=== PATIENT | female | born 1940 | race Caucasian/White ===

== ENCOUNTER 2022-02-16 16:10 | Emergency (ER) | payer OTHER, MEDICAID ==
[~2022-02-16] VITALS: Ht 167.6 cm; Wt 81.0 kg
[~2022-02-16 16:10] MED LIST: ACTOS; ADVAIR; COZAAR; LASIX; LEVAQUIN; METFORMIN; METOPROLOL; PANTPAK; POTASSIUM; PREDPOW63; SPIRIVA; WARFARIN
[2022-02-16] MEDS ORDERED: PANTOPRAZOLE 40 MG/10 ML VIAL INJ IV ONE (16:45)
[2022-02-16 18:08] LABS: Basophils # (auto) 0.1 10 ^3/uL (0-0.2); Basophils % (auto) 1.3 % (0.0-2.0); Eosinophils # (auto) 0.1 10 ^3/uL (0-0.8); Eosinophils % (auto) 1.6 % (0.0-7.0); Hemoglobin 12.9 g/dL (12.2-16.2); Lymphocytes # (auto) 1.6 10 ^3/uL (0.4-5.4); Lymphocytes % (auto) 20.3 % (10.0-50.0); Mean Corpuscular Hemoglobin 28.7 pg (28.0-32.0); Mean Corpuscular Hgb Conc. 32.3 g/dL (32.0-36.0); Monocytes # (auto) 0.6 10 ^3/uL (0-1.3); Monocytes % (auto) 7.8 % (0.0-12.0); Neutrophils # (auto) 5.3 10 ^3/uL (1.6-8.6); Nucleated Red Blood Cells % 0.1 %; White Blood Cell 7.7 10^3/uL (4.4-10.8)
[2022-02-16 18:29] LABS: Potassium 3.3 mmol/L (3.5-5.1)
[2022-02-16 18:36] LABS: Albumin 3.1 g/dL (3.4-5.0); BUN/Creatinine Ratio 22.8; Bilirubin, Total 0.5 mg/dL (0.2-1.0); Calcium 8.7 mg/dL (8.5-10.1); Total Protein 6.5 g/dL (6.4-8.2)
[2022-02-16 18:38] LABS: INR 1.18 (0.9-1.15); Partial Thromboplastin Time 39.9 sec (24.6-33.4)
[2022-02-16 18:53] LABS: Urine Bacteria NONE SEEN /hpf (None Seen); Urine Blood 1+ /uL (Negative); Urine WBC 17 /hpf (0 - 5)
[2022-02-16 19:00] VITALS: BP 158/52
[2022-02-16] MEDS ORDERED: POTASSIUM EFFERVESENT TAB 25 MEQ PO ONE (20:00)
== END 2022-02-16 21:05 | disposition home or self-care (01) ==
LOC: EDBD 16:10 → ER 16:10
DX: R10.84 Generalized abdominal pain (principal); R11.2 Nausea with vomiting, unspecified; R19.7 Diarrhea, unspecified; R07.89 Other chest pain; I10 Essential (primary) hypertension; E11.9 Type 2 diabetes mellitus without complications; J44.9 Chronic obstructive pulmonary disease, unspecified; Z79.899 Other long term (current) drug therapy; Z79.01 Long term (current) use of anticoagulants
CPT/HCPCS: 36415; 71045; 74176; 80053; 81001; 83880; 84484; 85025; 85379; 85610; 85730; 96374; 99285; C9113

== ENCOUNTER 2023-10-08 14:31 | Emergency (ER) | payer OTHER, MEDICAID ==
[~2023-10-08] VITALS: Ht 170.2 cm; Wt 95.5 kg
[2023-10-08 14:47] VITALS: BP 176/82; PULSE 62; RESP 20; O2SAT 97
[2023-10-08 15:38] LABS: Urine Bacteria FEW /hpf (None Seen); Urine Blood TRACE /uL (Negative); Urine Clarity Clear (Clear); Urine Color Colorless (Yellow); Urine Protein, UAD Negative (Negative); Urine Specific Gravity 1.007 (1.001-1.035); Urine Urobilinogen Normal (Negative); Urine WBC 5 /hpf (0 - 5); Urine pH 7.5 (5.0-9.0)
== END 2023-10-08 17:52 | disposition left against medical advice (07) ==
LOC: EDBD 14:31 → ER 14:31
DX: M54.9 Dorsalgia, unspecified (principal); Z53.21 Procedure and treatment not carried out due to patient leaving prior to being seen by health care provider
CPT/HCPCS: 81001

== ENCOUNTER 2025-05-09 22:59 | Inpatient (IN) | payer OTHER, MEDICAID ==
[~2025-05-09] VITALS: Ht 170.2 cm; Wt 113.0 kg
[2025-05-10] VITALS (10 sets, daily range): BP systolic 106–132; BP diastolic 61–74; PULSE 58–88; RESP 14–19; TEMP 97.8–98.3; O2SAT 96–99
[2025-05-10 00:22] LABS: Hematocrit 35.4 % (36.0-46.0); Hemoglobin 11.6 g/dL (12.2-16.2); Mean Corpuscular Hemoglobin 27.5 pg (28.0-32.0); Mean Corpuscular Volume 83.9 fL (80.0-100.0); Nucleated Red Blood Cells % 0.1 %
--- NOTE | 2025-05-10 00:44 | DVH ---
Exam: CT CT AB PEL WO CON-NO ORAL OR IV History: epig pain n/v Comparison Study: None Technique: Multidetector spiral CT of the abdomen was performed from lung bases to pubic symphysis. Imaging was performed without IV contrast. Axial, coronal and sagittal multiplanar reformats were obtained from the axial data set by the technologist. Radiation Dose : 1. Abdomen/Pelvis: CTDIvol 24.93 mGy, DLP 1517.37 mGy*cm. Findings: Evaluation of solid organs is limited due to lack of intravenous contrast use. Lung Bases: No acute or significant lung base finding. Normal heart size. No pleural or pericardial effusion. Liver: The liver is normal in size. No focal lesions. Gallbladder and Biliary Tree: Unremarkable Spleen: Unremarkable Pancreas: Fatty replacement of the pancreatic parenchyma. Adrenal Glands: Bilateral hypodense adrenal nodules, likely adenomas. Kidneys: Kidneys are grossly normal without calculi or hydronephrosis. Bladder: Grossly unremarkable for degree of distention. Bowel: The stomach is grossly normal in appearance. Small bowel and colon are normal in caliber and distribution. Normal appendix is visualized in the right lower quadrant without findings of appendicitis. Moderate size hiatal hernia. Ascites: Absent Lymphadenopathy: No mesenteric, retroperitoneal or periportal lymphadenopathy. Abdominal Wall and Mesentery: Unremarkable. Vasculature: Infrarenal IVC filter. Pelvic Organs: Unremarkable Musculoskeletal: No aggressive focal bony lesions, acute fractures or dislocation. IMPRESSION: No acute abdominal or pelvic findings. Radiation optimization: All CT scans at this facility use at least one of these dose optimization techniques: automated exposure control mA and/or kV adjustment per patient size (includes targeted exams where dose is matched to clinical indication) or iterative reconstruction.
[2025-05-10 00:50] LABS: Alanine Aminotransferase 21 U/L (7-40); Anion Gap 10 (5-15); BUN/Creatinine Ratio 23.7 (10.0-20.0); Carbon Dioxide 25 mmol/L (20-31); Chloride 103 mmol/L (98-107); Lipase 16 U/L (12-53); Potassium 3.9 mmol/L (3.5-5.1); Sodium 138 mmol/L (136-145)
[2025-05-10 00:51] LABS: Bilirubin, Total 0.6 mg/dL (0.2-1.0)
--- NOTE | 2025-05-10 00:52 | ED.PDOC ---
GI ASSESSMENT HPI Comments HPI: 85-year-old female who came to ER via EMS for abdominal pain. Patient has been complaining of diffuse abdominal pain, associated nausea, vomiting and loss of appetite. Complaining also weakness and dizziness. Denies any acute chest pains Past Medical History: Hypertension, diabetes, GERD, congestive heart failure and on home oxygen Surgical History: Family History: Personal and Social History: [place]: abd pain , chf, o2, abd pain. HPI: Poor Historian. REVIEW OF SYSTEMS: CONSTITUTIONAL: Denies acute: fever, diaphoresis, chills, HEAD: Denies acute: headache, photophobia Eyes: Denies acute: Double vision, vision loss, eye pain, eye discharge. EARS: Denies acute: tinnitus, hearing loss, ear discharge, ear pain, THROAT: Denies acute: sore throat, swelling, difficulty swallowing , pain with swal lowing, change in voice. NECK: Denies acute: neck pain, neck swelling, stiff neck. HEART: Denies acute : chest pain, palpitations, LUNGS: Denies acute: , wheezing, cough, hemoptysis ABDOMEN: Denies acute: , diarrhea, melena , hematemesis, hematochezia SKIN: Denies acute: rash, redness, lesions, itchiness. EXTREMITIES: Denies acute: calf pain, numbness, tingling, weakness, denies pain in extremity. Denies acute: Low back pain. Neuro: Denies acute: focal neurological deficit, motor or sensory focal neurological deficit, tremors, seizure like activity, confusion, change in mental status, loss of bowel or bladder function, cauda equina like symptoms. : Denies acute: dysuria, hematuria, flank pain, increase in urinary frequency. PSYCH: Denies acute: hallucination, suicidal ideation, homicidal ideation. FEMALE: Denies acute: abnormal vaginal bleeding, foul odor, unusual discharge. PHYSICAL EXAM: General: ----moderate----acute distress, awake and alert. Head: normocephalic, atraumatic. No raccoon's eyes, no monson sign. Neck: supple, trachea is midline, no swelling. Throat: Normal phonation. Eyes:, no erythema, no purulent discharge, no proptosis, no icterus. Heart: regular rate, regular rhythm, no significant murmur appreciated. Lungs: Mild respiratory distress, Able to speak in full sentences. No wheezing, no rhonchi, no crackles. No stridors Abdomen: Generalized nonspecific tender to palpation, non distended, soft, no guarding, no rebound, + bowel sounds. Morbidly obese Neuro: Awake, Alert, oriented to name, self, situation, follows commands GCS=15. Speech is normal. Skin: no petechia, no purpura, no cyanosis, non-pale, not jaundice. Lower extremities: --2/4 b/l - Pitting edema no deformity, no focal swelling, no calf TTP. Makes eye contact. moves all four extremities. Face: no apparent facial droop. ED COURSE: DISCLAIMER: This medical document was created using an electronic medical record system with voice recognition software and computerized dictation system. Although this document has been carefully reviewed, there might still be some phonetic and typographical errors. Occasional wrong-word or "sound-alike" substitutions may have occurred due to the inherent limitations of voice recognition software. These areas are purely typographical due to imperfections of the software programs and do not reflect any compromise in the patient's medical care. Please read the chart carefully and recognize, using context, where these substitutions have occurred. Chief Complaint: Abdominal Pain Time Seen by MD: 00:35 Reviewed Notes: Allergies Allergies: Coded Allergies: NO KNOWN ALLERGIES (Unverified , 07/13/11) Home Meds Active Scripts Aspirin (Aspirin EC Adult Low Dose) 81 Mg Tab, 81 MG PO DAILY, #30 TAB Prov:SALLIE GRIFFIN MD 05/15/25 Cefdinir (Cefdinir) 300 Mg Cap, 1 CAP PO BID, #6 CAP Prov:SALLIE GRIFFIN MD 05/15/25 Reported Medications [Spiriva] No Conflict Check 07/13/11 Prednisone (Prednisone) Pow 07/13/11 [Potassium] No Conflict Check 07/13/11 [Warfarin] No Conflict Check 07/13/11 Pantoprazole Sodium (Protonix) William 07/13/11 [Levaquin] No Conflict Check 07/13/11 [Metoprolol] No Conflict Check 07/13/11 [Cozaar] No Conflict Check 07/13/11 [Actos] No Conflict Check 07/13/11 [Metformin] No Conflict Check 07/13/11 [Lasix] No Conflict Check 07/13/11 [Advair] No Conflict Check 07/13/11 Information Source: Patient Mode of Arrival: EMS EKG EKG : Pulse Rate (adult): 62 Cardiac Rhythm: NSR Block: RBBB Comments Twave inversion at L1, L2 and AvF Was a procedure done? Was a procedure done?: No GI differential Dx Differential Diagnosis: Other (DDX include Diverticulitis, colitis, gastroenteritis, acute abdomen, SBO, enteritis, constipation, volvulus, append icitis, Gallbladder disease, choledocolithiasis, ascending cholangitis, pancreatitis, intraAbdominal mass/neoplasm, hepatitis, UTI, pylonephritis, kidney stone, aneurysm, dissection, Inflammatory bowel disease, gastroparesis, ischemic bowel,,,,,,Food poisoning, bacterial/parasitic/viral etiology, trauma, diabetes DKA,ovarian torsion, ovarian cyst/mass, tubo-ovarian abscess, ) X-Ray, Labs, Meds, VS Vital Signs Date Time Temp Pulse Resp B/P (MAP) Pulse Ox O2 Delivery O2 Flow Rate FiO2 05/10/25 04:00 60 14 112/47 (68) 99 05/10/25 03:40 60 Nasal Cannula* 3 32 05/10/25 03:00 61 14 109/49 (69) 98 05/10/25 02:33 60 22 105/43 (63) 97 05/10/25 02:00 60 22 101/42 (61) 97 05/10/25 01:14 62 05/10/25 01:08 62 05/10/25 01:00 98.2 62 17 98/36 (56) 97 98.2 05/10/25 01:00 Nasal Cannula* 3 32 05/09/25 23:31 99.4 72 26 108/63 92 99.4 Lab Test 05/10/25 02:42 05/10/25 01:58 05/10/25 00:52 05/10/25 00:06 Range/Units Lactic Acid Level 1.8 2.4 *H 0.4-2.0 mmol/L Troponin I High Sensitivity 733 *H 738 *H 791 *H </=34 ng/L Urine Color Yellow Yellow Urine Clarity Turbid H Clear Urine pH 6.0 5.0-9.0 Urine Specific Soper 1.020 1.001-1.035 Urine Protein 1+ H Negative Urine Ketones Negative Negative Urine Blood 2+ H Negative /uL Urine Nitrite Negative Negative Urine Bilirubin Negative Negative Urine Urobilinogen 2 H Negative mg/dL Urine Leukocyte Esterase 3+ Negative /uL Urine RBC 4 0 - 4 /hpf Urine Microscopic WBC 123 H 0-5 /HPF Urine Squamous Epithelial Cells Few <5 /hpf Urine Renal Epithelial Cells Few None Seen /hpf Urine Bacteria Many H None Seen /hpf Urine Mucus Few None Seen Urine Glucose Normal Normal mg/dL White Blood Count 13.3 H 4.4-10.8 10^3/uL Red Blood Count 4.22 4.0-5.20 10^6/uL Hemoglobin 11.6 L 12.2-16.2 g/dL Hematocrit 35.4 L 36.0-46.0 % Mean Corpuscular Volume 83.9 80.0-100.0 fL Mean Corpuscular Hemoglobin 27.5 L 28.0-32.0 pg Mean Corpuscular Hemoglobin Concent 32.8 32.0-36.0 g/dL Red Cell Distribution Width 17.0 H 11.8-14.3 % Platelet Count 191 140-450 10^3/uL Mean Platelet Volume 9.2 6.9-10.8 fL Neutrophils (%) (Auto) 90.5 H 37.0-80.0 % Lymphocytes (%) (Auto) 1.4 L 10.0-50.0 % Monocytes (%) (Auto) 7.2 0.0-12.0 % Eosinophils (%) (Auto) 0.5 0.0-7.0 % Basophils (%) (Auto) 0.4 0.0-2.0 % Neutrophils # (Auto) 12.1 H 1.6-8.6 10 ^3/uL Lymphocytes # (Auto) 0.2 L 0.4-5.4 10 ^3/uL Monocytes # (Auto) 1.0 0-1.3 10 ^3/uL Eosinophils # (Auto) 0.1 0-0.8 10 ^3/uL Basophils # (Auto) 0.1 0-0.2 10 ^3/uL Nucleated Red Blood Cells 0.1 % Sodium Level 138 136-145 mmol/L Potassium Level 3.9 3.5-5.1 mmol/L Chloride Level 103 98-107 mmol/L Carbon Dioxide Level 25 20-31 mmol/L Anion Gap 10 5-15 Blood Urea Nitrogen 33 H 9-23 mg/dL Creatinine 1.39 H 0.550-1.02 mg/dL Glomerular Filtration Rate Calc 37 >90 mL/min BUN/Creatinine Ratio 23.7 H 10.0-20.0 Serum Glucose 160 H 74-106 mg/dL Calcium Level 8.3 L 8.7-10.4 mg/dL Magnesium Level 2.0 1.6-2.6 mg/dL Total Bilirubin 0.6 0.2-1.0 mg/dL Aspartate Amino Transferase (AST) 40 13-40 U/L Alanine Aminotransferase (ALT) 21 7-40 U/L Alkaline Phosphatase 178 H 46-116 U/L B-Type Natriuretic Peptide 743.70 0-100 pg/mL Total Protein 5.6 L 5.7-8.2 g/dL Albumin 3.1 L 3.2-4.8 g/dL Lipase 16 12-53 U/L Thyroid Stimulating Hormone (TSH) 1.46 0.55-4.78 uIU/mL Microbiology Date/Time Source Procedure Growth Status 05/10/25 00:55 Blood Blood Culture - Final NO GROWTH AFTER 5 DAYS OF INCUBATION. Complete 05/10/25 00:52 Blood Blood Culture - Final NO GROWTH AFTER 5 DAYS OF INCUBATION. Complete 05/09/25 01:58 Urine - Midstream Clean Catch Urine Culture - Final Enterobacter aerogenes Escherichia coli Complete [place] [id number] Ph: [phone] DIAGNOSTIC IMAGING Diagnostic Imaging Report : [id number] Signed PATIENT: SALENA CHINO ACCT: [id number] UNIT: [id number] : 1940 LOC: ER ROOM / BED: / AGE / SEX: 85 / F ADM STATUS: REG ER SERVICE [id number] ORDERING PHYSICIAN: TAYLOR ELLISON DO PROCEDURE(s): ABPL - CT AB PEL WO CON-NO ORAL OR IV REASON: epig pain n/v ORDER NUMBER(s): [id number], ACCESSION NUMBER(s): [id number] Exam: CT CT AB PEL WO CON-NO ORAL OR IV History: epig pain n/v Comparison Study: None Technique: Multidetector spiral CT of the abdomen was performed from lung bases to pubic symphysis. Imaging was performed without IV contrast. Axial, coronal and sagittal multiplanar reformats were obtained from the axial data set by the technologist. Radiation Dose : 1. Abdomen/Pelvis: CTDIvol 24.93 mGy, DLP 1517.37 mGy*cm. Findings: Evaluation of solid organs is limited due to lack of intravenous contrast use. Lung Bases: No acute or significant lung base finding. Normal heart size. No pleural or pericardial effusion. Liver: The liver is normal in size. No focal lesions. Gallbladder and Biliary Tree: Unremarkable Spleen: Unremarkable Pancreas: Fatty replacement of the pancreatic parenchyma. Adrenal Glands: Bilateral hypodense adrenal nodules, likely adenomas. Kidneys: Kidneys are grossly normal without calculi or hydronephrosis. Bladder: Grossly unremarkable for degree of distention. Bowel: The stomach is grossly normal in appearance. Small bowel and colon are normal in caliber and distribution. Normal appendix is visualized in the right lower quadrant without findings of appendicitis. Moderate size hiatal hernia. Ascites: Absent Lymphadenopathy: No mesenteric, retroperitoneal or periportal lymphadenopathy. Abdominal Wall and Mesentery: Unremarkable. Vasculature: Infrarenal IVC filter. Pelvic Organs: Unremarkable Musculoskeletal: No aggressive focal bony lesions, acute fractures or dislocation. IMPRESSION: No acute abdominal or pelvic findings. Radiation optimization: All CT scans at this facility use at least one of these dose optimization techniques: automated exposure control mA and/or kV adjustment per patient size (includes targeted exams where dose is matched to clinical indication) or iterative reconstruction. ATED BY: DAR ZABALA MD DICTATED DATE/TIME: 05/10/2541 SIGNED BY: DAR ZABALA MD SIGNED DATE/TIME: 05/10/2541 CC: [place] [id number] Ph: [phone] DIAGNOSTIC IMAGING Diagnostic Imaging Report : [id number] Signed PATIENT: SALENA CHINO ACCT: [id number] UNIT: [id number] : 1940 LOC: ER ROOM / BED: / AGE / SEX: 85 / F ADM STATUS: REG ER SERVICE [id number] ORDERING PHYSICIAN: TAYLOR ELLISON DO PROCEDURE(s): CXRP - CHEST PORTABLE REASON: sob ORDER NUMBER(s): [id number], ACCESSION NUMBER(s): [id number] CHEST RADIOGRAPH Indication: sob Technique: Single frontal view of the chest was obtained COMPARISON: None FINDINGS: Single lead left chest wall pacing device with lead tip superimposed over the right ventricle. Cardiac silhouette is enlarged. Slight prominence of the pulmonary vasculature. Small left-sided pleural effusion with mild left basilar atelectasis / consolidation. Bones and soft tissues demonstrate no significant abnormality. IMPRESSION: Cardiomegaly with mild pulmonary vascular congestion. Small left-sided pleural effusion with mild left basilar atelectasis / consolidation. ATED BY: DAR ZABALA MD DICTATED DATE/TIME: 05/10/25118 SIGNED BY: DAR ZABALA MD SIGNED DATE/TIME: 05/10/25118 CC: Time of 1ST Reevaluation: 00:53 Reevaluation 1ST: Unchanged Patient Education/Counseling: Diagnosis, Treatment Family Education/Counseling: No Family Present Comments MDM: patient presented with the above HPI.--abdominal pain----workup was initiated. patient was found with the above mentioned diagnosis. the following medications were ordered: please refer to order lists of meds and tests obtained by myself Dr. Ellison. Patient ED course and VS have been stabilized. Patient has been reassessed in the ED and remained in a stable condition. Pertinent incidental findings were discussed with the patient and/or family. Patient/family voices understanding and is agreeable with plan. Patient has been observed in the ED adequate length of time to insure improvement/stability. Escalation of care considered: Consideration of escalation to observation or admission CT scan of the abdomen and pelvis was obtained. Patient was found that low albumin. Albumin was ordered. Patient was found with elevated troponin. Cardiology was consulted. Patient was found with elevated BNP. Patient was given Lasix. Patient was found with mild leukocytosis elevated lactic acid and UTI and lung consolidation, antibiotics initiated Sepsis workup was initiated with a fluid resuscitation restriction because of ongoing CHF exacerbation and volume overload Patient was ADMITTED to the medicine team for further evaluation and treatment of their presentation. All the reports of any imaging studies that were ordered by myself were reviewed by myself. SEPSIS Sepsis Screen Date sepsis recognized/suspect: May 09, 2025 Time Sepsis recognized/suspect: 2333 Recent Procedure: No On Antibiotic Therapy: No Respiratory Rate >20: Yes Heart Rate >90: No Temp<36 C (96.8 F) or >38.3 C: No SBP <90 or MAP <65 mmHG: No New Acute Mental Status Change: No Is the patient on CPAP, BIPAP,: No Physician Orders Ct Ab Pel Wo Con-No Oral Or Iv (05/09/25 23:54) Fish Technologist (05/09/25 ) Electrocardigram (05/09/25 23:54) Chest Portable (05/10/25 00:51) * Cardiology Consult (05/10/25 04:18) Vital Signs Date Time Temp Pulse Resp B/P (MAP) Pulse Ox O2 Delivery O2 Flow Rate FiO2 05/10/25 04:00 60 14 112/47 (68) 99 05/10/25 03:40 60 Nasal Cannula* 3 32 05/10/25 03:00 61 14 109/49 (69) 98 05/10/25 02:33 60 22 105/43 (63) 97 05/10/25 02:00 60 22 101/42 (61) 97 05/10/25 01:14 62 05/10/25 01:08 62 05/10/25 01:00 98.2 62 17 98/36 (56) 97 98.2 05/10/25 01:00 Nasal Cannula* 3 32 05/09/25 23:31 99.4 72 26 108/63 92 99.4 Laboratory Tests Test 05/10/25 00:06 05/10/25 02:42 Lactic Acid Level 2.4 mmol/L (0.4-2.0) *H 1.8 mmol/L (0.4-2.0) White Blood Count 13.3 10^3/uL (4.4-10.8) H Departure 1 Departure Time of Disposition: 00:55 Impression: Primary Impression: CHF exacerbation Additional Impressions: Elevated troponin Abdominal pain Urinary tract infection Elevated lactic acid level Sepsis Disposition: 09 ADMITTED INPATIENT Admit to: Tele Condition: Guarded e-Prescriptions Aspirin (Aspirin EC Adult Low Dose) 81 Mg Tab 81 MG PO DAILY, #30 TAB Prov: SALLIE GRIFFIN MD 05/15/25 Cefdinir (Cefdinir) 300 Mg Cap 1 CAP PO BID, #6 CAP Prov: SALLIE GRIFFIN MD 05/15/25 Discharged With: Self Critical Care Note Critical Care Time?: Yes (1 hr-critical care time only) Stability Stability form required: No Heart Score Heart Score: Heart Score Response (Comments) Value History Slightly Suspicious 0 EKG Normal 0 Age >65 2 Risk Factors >3 or Hx ASHD 2 Troponin >3 x's Normal limit 2 Total 6 I personally scribed for TAYLOR ELLISON DO ([email or web address]) on 05/10/25 at 00:52. El ectronically submitted by Bharath Zacarias ([facility]). I personally scribed for TAYLOR ELLISON DO ([email or web address]) on 05/10/25 at 00:55. Electronically submitted by [facility]acarias ([facility] I personally scribed for TAYLOR ELLISON DO ([email or web address]) on 05/10/25 at 01:14. Electronically submitted by Bharath Zacarias ([facility]). I personally scribed for TAYLOR ELLISON DO ([email or web address]) on 05/10/25 at 01:29. Electronically submitted by Bharath Zacarias ([facility]). I personally scribed for TAYLOR ELLISON DO ([email or web address]) on 05/10/25 at 03:45. Electronically submitted by Bharath Zacarias ([facility] TAYLOR ELLISON DO May 10, 2025 00:52
[2025-05-10 00:54] LABS: Albumin 3.1 g/dL (3.2-4.8); Alkaline Phosphatase 178 U/L (46-116); Blood Urea Nitrogen 33 mg/dL (9-23); Calcium 8.3 mg/dL (8.7-10.4); Glucose 160 mg/dL (74-106); Total Protein 5.6 g/dL (5.7-8.2)
[2025-05-10 00:59] LABS: Lactic Acid w/Reflex 2.4 mmol/L (0.4-2.0)
--- NOTE | 2025-05-10 01:22 | DVH ---
CHEST RADIOGRAPH Indication: sob Technique: Single frontal view of the chest was obtained COMPARISON: None FINDINGS: Single lead left chest wall pacing device with lead tip superimposed over the right ventricle. Cardiac silhouette is enlarged. Slight prominence of the pulmonary vasculature. Small left-sided pleural effusion with mild left basilar atelectasis / consolidation. Bones and soft tissues demonstrate no significant abnormality. IMPRESSION: Cardiomegaly with mild pulmonary vascular congestion. Small left-sided pleural effusion with mild left basilar atelectasis / consolidation.
[2025-05-10] MEDS: ALBUMIN 25% 100 ML IV ONE (01:34)
[2025-05-10 02:50] LABS: Urine Protein, UAD 1+ (Negative)
[2025-05-10] MEDS: SODIUM CHLORIDE 0.9% 500 ML IV ONE (03:09)
[2025-05-10] MEDS: PIPERACILLIN-TAZOB 3.375GM 100 ML IV ONE (03:09)
[2025-05-10] MEDS: FUROSEMIDE 40 MG/4 ML VIAL IV ONE (03:18)
[2025-05-10] MEDS ORDERED: VANCOMYCIN PER PHARMACY 0 MG IV SCH (04:30)
[2025-05-10] MEDS ORDERED: DOCUSATE SOD 100 MG CAP PO PRN (04:30)
[2025-05-10] MEDS ORDERED: MORPHINE SULFATE INJ 2 MG/ml SYRG IV PRN (04:30)
[2025-05-10] MEDS ORDERED: DEXTROSE (50%) 50ML SYRG IV PRN ×2 (04:30→09:45)
[2025-05-10] MEDS ORDERED: HYDROcodone-ACET 5/325MG TAB PO PRN (04:30)
[2025-05-10] MEDS ORDERED: ACETAMINOPHEN 325 MG TAB PO PRN (04:30)
[2025-05-10] MEDS ORDERED: NITROGLYCERIN 0.4 MG SL TAB SL PRN (04:30)
--- NOTE | 2025-05-10 04:58 | DVHHPRES ---
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 Per daughter, the patient was sweaty, clammy, unable to ambulate, and complained of burning dysuria with foul-smelling urine. She has chronic cough with sputum and dyspnea at baseline on 3 L O?. No fever, chest pain, melena, or hematemesis. She fell on 04/25/25, had a negative head CT/MRI at [facility]. ER Course & Findings * BP: 98/36 -110/51 mmHg after fluids (MAP - 70) * Pulse: 62 bpm (paced) * RR: 17/min | SpO? 97 % on 3 L NC * WBC 13.3 ?, Lactate 2.4 - 1.8 (after resuscitation), Cr 1.39 (BUN 33), Alb 3.1 , BNP 743 , Troponin-HS 791 - 738 - 733 , UA: WBC 123/hpf, LE 3+, bacteria many, nitrite +, protein +, turbid urine. * CXR: Cardiomegaly with pulmonary vascular congestion, small left pleural effusion, mild basilar atelectasis/consolidation. * CT A/P (no contrast): No acute intra-abdominal pathology; fatty pancreas, bilateral adrenal adenomas, infrarenal IVC filter. ED Management * IV NS 500 mL/hr 1 h, * Albumin 25 mL IV 1, * Zosyn 4.5 g IV 1, * Lasix 40 mg IV 1 for mild congestion.?BP improved, lactate normalized, patient clinically more alert. Findings consistent with urosepsis (severe sepsis with hypotension and URSULA), possible Type 2 NSTEMI (demand ischemia), and [id number] CHF. Plan for inpatient admission to telemetry for continued IV antibiotics, cautious fluids, culture monitoring, and multidisciplinary management Past Medical History * Congestive heart failure (HFpEF) * Atrial fibrillation s/p ablation and pacemaker * COPD on 3 L home oxygen (10 yrs) * Type 2 diabetes mellitus (IDDM) * Hypertension * GERD * History of DVT s/p IVC filter * Chronic venous stasis / phlebitis *CKD stage 3 (GFR 37 mL/min) * Recent Falls Past Surgical History * Hysterectomy (age 28) * Cholecystectomy * Cardiac ablation & pacemaker placement * IVC filter insertion Family History Non-contributory; no premature cardiac deaths. Past Social History * Former smoker > 50 yrs ago; occupational dust exposure (COPD risk) * Denies alcohol/drug use *; independent baseline ADLs Review of Systems Review of Systems General Fatigue, weakness, chills, poor appetite, No fever HEENT Dry mouth, No sore throat Neuro Confusion, dizziness, No focal deficit Cardiac Palpitations (AF history), No chest pain Respiratory Chronic cough, sputum, dyspnea , No hemoptysis GI Diffuse abdominal pain, nausea, vomiting, No hematemesis/melena Dysuria, foul urine, low output, No hematuria Musculoskeletal No acute trauma Skin Clammy,No rash Endocrine No heat/cold intolerance Allergies: Coded Allergies: NO KNOWN ALLERGIES (Unverified , 07/13/11) Exam Vital Signs Vital Signs Date Time Temp Pulse Resp B/P (MAP) Pulse Ox O2 Delivery O2 Flow Rate FiO2 05/10/25 01:14 62 05/10/25 01:00 98.2 17 98/36 (56) 97 98.2 05/10/25 01:00 Nasal Cannula* 3 32 Exam General: Elderly female, ill-appearing, arousable, mildly confused Vitals: BP 110/51 (MAP 70), HR 60 (paced), RR 17, T 98.2 F, SpO? 97 % on 3 L NC HEENT: Dry mucosa, no icterus or cyanosis Neck: No JVD, no bruit Cardiac: Paced rhythm, S +, no murmur Lungs: Bibasilar crackles, no wheezing Abdomen: Soft, mild suprapubic tenderness, +BS, non-guarding Extremities: Chronic venous changes, no acute edema Neuro: Oriented 2, no focal deficit Skin: Warm, clammy Psych: Cooperative, fatigued Labs/Xrays Labs Test 05/10/25 02:42 05/10/25 01:58 05/10/25 00:06 Range/Units Lactic Acid Level 1.8 0.4-2.0 mmol/L Troponin I High Sensitivity 733 *H </=34 ng/L Urine Color Yellow Yellow Urine Clarity Turbid H Clear Urine pH 6.0 5.0-9.0 Urine Specific Simms 1.020 1.001-1.035 Urine Protein 1+ H Negative Urine Ketones Negative Negative Urine Blood 2+ H Negative /uL Urine Nitrite Negative Negative Urine Bilirubin Negative Negative Urine Urobilinogen 2 H Negative mg/dL Urine Leukocyte Esterase 3+ Negative /uL Urine RBC 4 0 - 4 /hpf Urine Microscopic WBC 123 H 0-5 /HPF Urine Squamous Epithelial Cells Few <5 /hpf Urine Renal Epithelial Cells Few None Seen /hpf Urine Bacteria Many H None Seen /hpf Urine Mucus Few None Seen Urine Glucose Normal Normal mg/dL White Blood Count 13.3 H 4.4-10.8 10^3/uL Red Blood Count 4.22 4.0-5.20 10^6/uL Hemoglobin 11.6 L 12.2-16.2 g/dL Hematocrit 35.4 L 36.0-46.0 % Mean Corpuscular Volume 83.9 80.0-100.0 fL Mean Corpuscular Hemoglobin 27.5 L 28.0-32.0 pg Mean Corpuscular Hemoglobin Concent 32.8 32.0-36.0 g/dL Red Cell Distribution Width 17.0 H 11.8-14.3 % Platelet Count 191 140-450 10^3/uL Mean Platelet Volume 9.2 6.9-10.8 fL Neutrophils (%) (Auto) 90.5 H 37.0-80.0 % Lymphocytes (%) (Auto) 1.4 L 10.0-50.0 % Monocytes (%) (Auto) 7.2 0.0-12.0 % Eosinophils (%) (Auto) 0.5 0.0-7.0 % Basophils (%) (Auto) 0.4 0.0-2.0 % Neutrophils # (Auto) 12.1 H 1.6-8.6 10 ^3/uL Lymphocytes # (Auto) 0.2 L 0.4-5.4 10 ^3/uL Monocytes # (Auto) 1.0 0-1.3 10 ^3/uL Eosinophils # (Auto) 0.1 0-0.8 10 ^3/uL Basophils # (Auto) 0.1 0-0.2 10 ^3/uL Nucleated Red Blood Cells 0.1 % Sodium Level 138 136-145 mmol/L Potassium Level 3.9 3.5-5.1 mmol/L Chloride Level 103 98-107 mmol/L Carbon Dioxide Level 25 20-31 mmol/L Anion Gap 10 5-15 Blood Urea Nitrogen 33 H 9-23 mg/dL Creatinine 1.39 H 0.550-1.02 mg/dL Glomerular Filtration Rate Calc 37 >90 mL/min BUN/Creatinine Ratio 23.7 H 10.0-20.0 Serum Glucose 160 H 74-106 mg/dL Calcium Level 8.3 L 8.7-10.4 mg/dL Total Bilirubin 0.6 0.2-1.0 mg/dL Aspartate Amino Transferase (AST) 40 13-40 U/L Alanine Aminotransferase (ALT) 21 7-40 U/L Alkaline Phosphatase 178 H 46-116 U/L B-Type Natriuretic Peptide 743.70 0-100 pg/mL Total Protein 5.6 L 5.7-8.2 g/dL Albumin 3.1 L 3.2-4.8 g/dL Lipase 16 12-53 U/L SEPSIS Sepsis Screen Date sepsis recognized/suspect: May 10, 2025 Time Sepsis recognized/suspect: 339 Recent Procedure: No On Antibiotic Therapy: Yes Respiratory Rate >20: Yes Heart Rate >90: No Temp<36 C (96.8 F) or >38.3 C: No SBP <90 or MAP <65 mmHG: No New Acute Mental Status Change: No Is the patient on CPAP, BIPAP,: No Physician Orders Ct Ab Pel Wo Con-No Oral Or Iv (05/09/25 23:54) Gre Instructor (05/09/25 ) Electrocardigram (05/09/25 23:54) Chest Portable (05/10/25 00:51) Insert King Catheter QSHIFT (05/10/25 02:04) * Cardiology Consult (05/10/25 04:18) Admit (05/10/25 04:24) Code Status (05/10/25 04:24) 2 Gm Sodium Diet (05/10/25 Breakfast) Renal Standard(2gna,3gk,Lopho) (05/10/25 Breakfast) Oxygen Per Hour (05/10/25 04:24) Hydrocodone-Acet 5/325mg Tab ([place] 5/32 (05/10/25 04:30) Docusate Sodium Capsule (Colace Capsule) (05/10/25 04:30) Enoxaparin Sodium (Lovenox) (05/10/25 10:00) Fall Risk Precautions In Place QSHIFT (05/10/25 04:24) Complete Blood Count (05/11/25 04:00) Comprehensive Metabolic Panel (05/11/25 04:00) Cardiac Diet-2gna,Lofat,Lochol (05/10/25 Breakfast) Echo 2d Mode Cardiac Dop (05/10/25 04:24) Condition: Unstable (05/10/25 04:24) Acetaminophen Tablet (Tylenol Tablet) (05/10/25 04:30) Sequential Compression Device (05/10/25 ) Nitroglycerin Sublingual (Ntrostat Subli (05/10/25 04:30) Morphine Sulfate Injection (05/10/25 04:30) Oxygen By Nasal Cannula (05/10/25 04:24) Stat Ekg For Chest Pain (05/10/25 04:24) Notify Md Of Changes From Base (05/10/25 04:24) Police Specialist For 24 Hours (05/10/25 04:24) Emergency Dysrhythmia Protocol (05/10/25 04:24) Rhythm Strips Once Every Shift (05/10/25 04:24) Electrocardigram (05/10/25 04:24) Electrocardigram (05/10/25 05:24) Electrocardigram (05/10/25 07:24) Troponin-I Hs (05/10/25 04:24) Troponin-I Hs (05/10/25 05:24) Troponin-I Hs (05/10/25 07:24) Piperacillin-Tazob 3.375gm (Zosyn 3.375g (05/10/25 06:00) Vancomycin Per Pharmacy Protoc (05/10/25 04:24) Vancomycin Per Pharmacy (05/10/25 04:30) Blood Culture (05/10/25 04:24) Urine Bacterial Culture (05/10/25 04:24) Respiratory Culture W/ Gs (05/10/25 04:24) Covid19 Antigen Smitha (05/10/25 ) Lactic Acid W/ Reflex Order (05/10/25 08:00) Oxygen By Nasal Cannula (05/10/25 04:24) Magnesium (05/10/25 04:24) B-Type Natriuretic Peptide (05/10/25 04:24) Daily Weight (05/10/25 04:24) Strict I&O (05/10/25 ) Ipratropium Medneb (Atrovent Medneb) (05/10/25 04:30) Albuterol Medneb (Ventolin Medneb) (05/10/25 04:30) Budesonide (Inhalation) (Pulmicort) (05/10/25 10:00) Med Neb Initial Treatment (05/10/25 04:24) Cont Med Neb Intial Tx (05/10/25 04:24) Glucose Blood (Accu-Chek Comfort Curve T (05/10/25 08:00) Insulin R (Human) (Insulin R) (05/10/25 08:00) Dextrose 50% Syringe (05/10/25 04:30) Fall Risk Precautions In Place QSHIFT (05/10/25 04:24) Pantoprazole (Protonix) (05/10/25 10:00) Thyroid Stimulating Hormone (05/10/25 04:54) Stool Occult Blood (05/10/25 04:54) Vital Signs Date Time Temp Pulse Resp B/P (MAP) Pulse Ox O2 Delivery O2 Flow Rate FiO2 05/10/25 01:14 62 05/10/25 01:08 62 05/10/25 01:00 98.2 62 17 98/36 (56) 97 98.2 05/10/25 01:00 Nasal Cannula* 3 32 05/09/25 23:31 99.4 72 26 108/63 92 99.4 Laboratory Tests Test 05/10/25 00:06 05/10/25 02:42 Lactic Acid Level 2.4 mmol/L (0.4-2.0) *H 1.8 mmol/L (0.4-2.0) White Blood Count 13.3 10^3/uL (4.4-10.8) H Medications Medications Dose Ordered Sig/Varghese Route Start Time Stop Time Status Last Admin Dose Admin Albumin Human 100 ml @ 100 mls/hr ONCE ONCE IV 05/10/25 01:30 05/10/25 02:29 DC 05/10/25 01:34 100 MLS/HR Piperacillin Sod/ Tazobactam Sod 100 ml @ 100 mls/hr ONCE ONCE IV 05/10/25 01:45 05/10/25 02:44 DC 05/10/25 03:09 100 MLS/HR Sodium Chloride 500 ml @ 500 mls/hr Q1H ONCE IV 05/10/25 01:45 05/10/25 02:44 DC 05/10/25 03:09 500 MLS/HR Assessment/Plan Assessment/Plan Assessment Severe Sepsis secondary to Urinary Tract Infection (urosepsis) WBC elevated, lactate elevated, hypotension, UA +, improved post-fluids CKD With superimposed URSULA (pre-renal vasomotor type) BUN/Cr 33/1.39, BCR 23.7, GFR 37 Type 2 NSTEMI (demand ischemia) due to sepsis Troponin [id number], no ST-elevation Acute on Chronic CHF unspecified type/ Echo still pending BNP 743, CXR congestion, Chronic COPD on home O2 3 L chronic cough, baseline dyspnea Type 2 Diabetes Mellitus with hyperglycemia Hypertension (currently labile) Hyponutrition / Hypoalbuminemia Albumin 3.1 , poor intake History of DVT / IVC filter Chronic risk Recent Fall (04/25/25) with negative head CT/MRI No acute injury noted Normocytic Normochromic Anemia, multifactorial (likely anemia of chronic disease and sepsis-related) Hgb 11.6 g/dL , Hct 35.4 %, MCH 27.5 , RDW 17 , chronic CHF/COPD/CKD, hypoal buminemia, infection-related marrow suppression chronic + acute component (AOCD vs dilutional vs inflammatory) Plan Severe Sepsis / Urosepsis * Continue Zosyn 4.5 g IV q8 h, adjust per culture. * Blood & urine cultures 2 prior to next dose. * Fluids: NS 250 mL bolus PRN MAP < 65, monitor I&O (avoid overload in CHF). * Repeat lactate q6 h until < 2.0. * Monitor MAP ? 65; vasopressors (norepinephrine) if persistent hypotension. CKD with superimposed URSULA (pre-renal vasomotor) * Hold losartan, NSAIDs, nephrotoxins. * Monitor UO > 0.5 mL/kg/hr, daily BUN/Cr. * Avoid IV contrast. * Nephrology consult if Cr ? > 1.5 baseline. Type 2 NSTEMI (demand) due to sepsis * Trend troponins q6 h 2, EKG q6 h 3. * Continue ASA 81 mg PO daily, clopidogrel 75 mg PO daily. * Telemetry monitoring. * Cardiology consult for echo & optimization. Acute on Chronic CHF /Unspecified type * Hold Lasix until hemodynamically stable; resume 40 mg IV q12 h if volume overload. * Daily weights, I&O, BMP, BNP trend. * Low Na cardiac diet. Ordered Echo COPD on Home O? * Maintain SpO? 8892 % on 3 L NC. * Continue Spiriva qd + Breztri per home regimen. * PRN DuoNeb q46 h. * Respiratory therapy eval. Type 2 DM with Hyperglycemia * POC glucose AC & HS. * Continue Lantus 20 U SC qHS + SSI Lispro per protocol. * Hold oral agents. Nutrition / Hypoalbuminemia * Cardiac ADA diet as tolerated. * Nutrition consult for protein supplementation. * Multivitamin, Vit D. Hypertension / AFib / Pacemaker * Hold diltiazem until SBP > 100. * Monitor tele for rate control. * Check pacemaker function if dominique episodes. Normocytic Normochromic Anemia, multifactorial (likely anemia of chronic disease and sepsis-related) * Iron studies: serum iron, ferritin, TIBC, transferrin saturation * Reticulocyte count * Vitamin B12, folate levels * Occult blood stool test 3 to rule out GI loss * Review peripheral smear if H/H drops or indices worsen Therapeutic Plan * Continue Iron 65 mg PO daily (per home regimen) * Maintain Hgb above 8 g/dL (given cardiac comorbidities) * Transfuse PRBCs if Hgb < 7 g/dL or symptomatic (dyspnea, angina, dizziness) * Avoid fluid overload during transfusion (use diuretic between units if CHF risk) Recent Fall / Delirium Prevention * Fall risk bundle (assist 2, bed alarm). * Neuro checks q4 h 24 h. Prophylaxis Type Intervention DVT ENOXAPARIN + SCDs GI (Stress) Pantoprazole 40 mg IV q24 h Pressure Ulcer Turn q2 h, air mattress Aspiration HOB > 30, swallow eval Bowel Regimen Docusate 100 mg BID + senna PRN Glycemic Control Target BG [id number] mg/dL Case discussed in detail with the attending physician, including the clinical presentation, diagnostic workup, and comprehensive management plan. The patient was present for the discussion and demonstrated understanding of her condition and the proposed plan. Patient verbally consented to hospital admission and agreed to the outlined evaluation and treatment strategies, including imaging, labs, medication initiation, specialist consultations, and supportive care. Plan discussed with: Patient, Daughter My Orders Orders - PRAVEEN WILKES RESIDENT Procedure Category Date Status Time Admit ADMIT 05/10/25 Transmitted 04:24 Code Status CODE 05/10/25 Transmitted 04:24 2 Gm Sodium Diet DIET 05/10/25 Transmitted Breakfast Renal DIET 05/10/25 Transmitted Standard(2gna,3gk,Lopho) Breakfast Oxygen Per Hour RT 05/10/25 Transmitted 04:24 Hydrocodone-Acet PHA 05/10/25 In Process 5/325mg Tab ([place] 04:30 Docusate Sodium PHA 05/10/25 In Process Capsule (Colace 04:30 Enoxaparin Sodium PHA 05/10/25 Logged (Lovenox) 10:00 Fall Risk Precautions SIMON 05/10/[address] 04:24 Complete Blood Count LAB 05/11/25 Verified 04:00 Comprehensive LAB 05/11/25 Verified Metabolic Panel 04:00 Cardiac DIET 05/10/25 Transmitted Diet-2gna,Lofat,Lochol Breakfast Echo 2d Mode Cardiac US 05/10/25 Logged DOP 04:24 Condition: Unstable SIMON 05/10/25 In Process 04:24 Acetaminophen Tablet PHA 05/10/25 In Process (Tylenol Tablet) 04:30 Sequential SIMON 05/10/25 In Process Compression Device Nitroglycerin PHA 05/10/25 In Process Sublingual (Ntrostat 04:30 Morphine Sulfate PHA 05/10/25 In Process Injection 04:30 Oxygen By Nasal RT 05/10/25 Transmitted Cannula 04:24 Stat Ekg For Chest [facility] 05/10/25 In Process Pain 04:24 Notify Md Of Changes [facility] 05/10/25 In Process From Base 04:24 Police Specialist For [facility] 05/10/25 In Process 24 Hours 04:24 Emergency Dysrhythmia [facility] 05/10/25 In Process Protocol 04:24 Rhythm Strips Once [facility] 05/10/25 In Process Every Shift 04:24 Electrocardigram EKG 05/10/25 Logged 04:24 Electrocardigram EKG 05/10/25 Logged 05:24 Electrocardigram EKG 05/10/25 Logged 07:24 Troponin-I Hs LAB 05/10/25 Logged 04:24 Troponin-I Hs LAB 05/10/25 Logged 05:24 Troponin-I Hs LAB 05/10/25 Logged 07:24 Piperacillin-Tazob PHA 05/10/25 Logged 3.375gm (Zosyn 3.375g 06:00 Vancomycin Per SIMON 05/10/25 In Process Pharmacy Protoc 04:24 Vancomycin Per PHA 05/10/25 Logged Pharmacy 04:30 Blood Culture [facility] 05/10/25 Logged 04:24 Urine Bacterial [facility] 05/10/25 Logged Culture 04:24 Respiratory Culture [facility] 05/10/25 Logged W/ Gs 04:24 Covid19 Antigen [place] LAB 05/10/25 Logged Lactic Acid W/ Reflex LAB 05/10/25 Logged Order 08:00 Oxygen By Nasal RT 05/10/25 Transmitted Cannula 04:24 Magnesium LAB 05/10/25 Logged 04:24 B-Type Natriuretic LAB 05/10/25 Logged Peptide 04:24 Daily Weight SIMON 05/10/25 In Process 04:24 Strict I&O ED NURSING 05/10/25 Transmitted Ipratropium Medneb PHA 05/10/25 In Process (Atrovent Medneb) 04:30 Albuterol Medneb PHA 05/10/25 In Process (Ventolin Medneb) 04:30 Budesonide PHA 05/10/25 In Process (Inhalation) 10:00 Med Neb Initial RT 05/10/25 Logged Treatment 04:24 Cont Med Neb Intial Tx RT 05/10/25 Logged 04:24 Glucose Blood PHA 05/10/25 In Process (Accu-Chek Comfort 08:00 Insulin R (Human) PHA 05/10/25 In Process (Insulin R) 08:00 Dextrose 50% Syringe PHA 05/10/25 In Process 04:30 Fall Risk Precautions SIMON 05/10/[address] 04:24 Pantoprazole PHA 05/10/25 In Process (Protonix) 10:00 Thyroid Stimulating LAB 05/10/25 Logged Hormone 04:54 Stool Occult Blood LAB 05/10/25 Logged 04:54 Date of Service: May 10, 2025 Billing Provider: VIVEK CRAMER MD Common Visit Codes: [id number] INP/OBS CARE (HIGH) Secondary Visit Codes: [id number] CARE PLAN 30 MINUTES PRAVEEN WILKES RESIDENT May 10, 2025 04:58"
[2025-05-10] MEDS: SODIUM CHLORIDE 0.9% 250 ML IV ONE (05:10)
[2025-05-10] MEDS: PANTOPRAZOLE 40 MG/10 ML VIAL INJ IV ONE (05:11)
[2025-05-10] MEDS: VANCOMYCIN 1GM/250ML KIT 250 ML IV SCH (06:03)
[2025-05-10] MEDS: InsuLIN REG 1unit/0.01ml Soln (100units/ml) SC SCH ×2 (09:02→12:20)
[2025-05-10] MEDS: ACCU-CHEK COMFORT CURVE STRIP VI SCH ×2 (09:04→12:16)
[2025-05-10 09:05] LABS: COVID19 ANTIGEN SOFIA FIA NEGATIVE (NEGATIVE)
[2025-05-10] MEDS: BUDESONIDE (INHALATION) 0.5 MG/2 ML NEB NEB SCH (09:22)
[2025-05-10 09:47] LABS: Hematocrit 32.3 % (36.0-46.0); Hemoglobin 10.3 g/dL (12.2-16.2); Mean Corpuscular Hemoglobin 27.1 pg (28.0-32.0); Mean Corpuscular Volume 85.0 fL (80.0-100.0); Nucleated Red Blood Cells % 0.0 %
[2025-05-10] MEDS ORDERED: ENOXAPARIN SOD 40 MG/0.4 ML SYRINGE SC SCH (10:00)
[2025-05-10 10:06] LABS: Alanine Aminotransferase 15 U/L (7-40); Anion Gap 11 (5-15); BUN/Creatinine Ratio 23.5 (10.0-20.0); Carbon Dioxide 25 mmol/L (20-31); Chloride 101 mmol/L (98-107); Potassium 4.0 mmol/L (3.5-5.1); Sodium 137 mmol/L (136-145)
[2025-05-10 10:07] LABS: Bilirubin, Total 0.5 mg/dL (0.2-1.0)
[2025-05-10 10:09] LABS: Albumin 3.1 g/dL (3.2-4.8); Alkaline Phosphatase 137 U/L (46-116); Blood Urea Nitrogen 38 mg/dL (9-23); Calcium 7.8 mg/dL (8.7-10.4); Glucose 262 mg/dL (74-106); Total Protein 5.4 g/dL (5.7-8.2)
[2025-05-10 10:12] LABS: Total Iron Binding Capacity 266.0 ug/dL (250-425)
[2025-05-10 10:13] LABS: Iron 12.0 ug/dL (50-170)
[2025-05-10] MEDS: PANTOPRAZOLE 40 MG/10 ML VIAL INJ IV SCH (10:59)
[2025-05-10] MEDS: CLOPIDOGREL BISULFATE 75 MG TAB PO SCH (11:00)
--- NOTE | 2025-05-10 11:18 | DVHCONRES ---
Date Seen: May 10, 2025 Resident Creating Document: TAINAKALIA RESIDENT Referring Physician Dr Ramirez Reason for Consultation Elevated troponins History of Present Illness Ochoa is a 85 y o female patient with severe COPD on home oxygen, diabetes, atrial fibrillation with pacemaker, congestive heart failure, and history of deep vein thrombosis presenting with several days of weakness, urinary difficult ies, and systemic symptoms. Over the last couple of days, she experienced progressive weakness to the point where she could not get up from bed. She was having difficulty urinating, which was initially thought to be a urinary tract infection. On Sunday, she reported not feeling well to family members. Her brother, who lives with her, called for assistance when her condition worsened. The patient developed additional symptoms including loss of appetite, hot and cold sweats, and shaking. She experienced difficulty breathing, chest tightness, and lack of strength to sit up. Her functional status declined significantly from her baseline, where she normally could ambulate short distances with a walker and manage basic activities like going to the restroom independently. She became too weak to transfer from bed to car, requiring ambulance transport to the hospital. She reports feeling scared due to her limited activity level and overall condition. 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 and a subsidiary of [employer] with exposure to extreme temperatures - Living Situation: Lives with brother, daughter lives 2 hours away Review of Systems General: Positive for weakness, loss of appetite, hot and cold sweats, and shaking. HEENT: Positive for sinus drainage. Cardiovascular: Positive for chest tightness. Respiratory: Positive for difficulty breathing. Genitourinary: Positive for difficulty urinating. Allergies: Coded Allergies: NO KNOWN ALLERGIES (Unverified , 07/13/11) Home Meds Reported Medications [Spiriva] No Conflict Check 07/13/11 Prednisone (Prednisone) Pow 07/13/11 [Potassium] No Conflict Check 07/13/11 [Warfarin] No Conflict Check 07/13/11 Pantoprazole Sodium (Protonix) William 07/13/11 [Levaquin] No Conflict Check 07/13/11 [Metoprolol] No Conflict Check 07/13/11 [Cozaar] No Conflict Check 07/13/11 [Actos] No Conflict Check 07/13/11 [Metformin] No Conflict Check 07/13/11 [Lasix] No Conflict Check 07/13/11 [Advair] No Conflict Check 07/13/11 Current Medications Current Medications Medications (Trade) Dose Ordered Sig/Varghese Route PRN Reason Start Time Stop Time Status Last Admin Acetaminophen/ Hydrocodone Bitart ([place] 5/325MG Tab) 1 tab Q4HP PRN PO MODERATE PAIN (4-6 PAIN SCALE) 05/10/25 04:30 Docusate Sodium (Colace Capsule) 100 mg BIDPRN PRN PO FOR CONSTIPATION 05/10/25 04:30 Enoxaparin Sodium (Lovenox) 40 mg DAILY SC 05/10/25 10:00 05/10/25 09:37 DC Acetaminophen (Tylenol Tablet) 650 mg Q6HP PRN PO PAIN SCALE 1-3 OR TEMP>100.4 05/10/25 04:30 Nitroglycerin (Ntrostat Sublingual) 0.4 mg Q5MINP PRN SL FOR CHEST PAIN 05/10/25 04:30 Morphine Sulfate 2 mg Q30M PRN IV FOR CHEST PAIN 05/10/25 04:30 Piperacillin Sod/ Tazobactam Sod 100 ml @ 25 mls/hr Q8HR IV 05/10/25 14:00 Vancomycin HCl 0 ml @ 0 mls/hr PER PHARMACY IV 05/10/25 04:30 UNV Ipratropium [place] (Atrovent Medneb) 0.5 mg Q4HPRN PRN NEB SHORTNESS OF BREATH 05/10/25 04:30 Albuterol (Ventolin Medneb) 1.25 mg Q4HPRN PRN NEB SHORTNESS OF BREATH 05/10/25 04:30 Budesonide (Pulmicort) 0.5 mg BID NEB 05/10/25 10:00 05/10/25 09:22 Diagnostic Test (Pha) (Accu-Chek Comfort Curve T) 1 strip IQ4HR 05/10/25 08:00 05/10/25 09:41 DC 05/10/25 09:04 Insulin Human Regular (InsuLIN R) IQ4HR SC 05/10/25 08:00 05/10/25 09:41 DC 05/10/25 09:02 Dextrose 50 ml UD PRN IV Blood Sugar LESS THAN 60 05/10/25 04:30 05/10/25 09:41 DC Pantoprazole Sodium (Protonix) 40 mg DAILY IV 05/10/25 10:00 05/10/25 10:59 Vancomycin HCl 250 ml @ 250 mls/hr Q1H IV 05/10/25 05:30 05/10/25 07:29 DC 05/10/25 07:00 Aspirin 81 mg DAILY PO 05/10/25 10:00 05/10/25 10:59 Diagnostic Test (Pha) (Accu-Chek Comfort Curve T) 1 strip IQ4HR 05/10/25 12:00 Insulin Human Regular (InsuLIN R) IQ4HR SC 05/10/25 12:00 Dextrose 50 ml UD PRN IV Blood Sugar LESS THAN 60 05/10/25 09:45 Clopidogrel Bisulfate (Plavix) 75 mg DAILY PO 05/10/25 10:00 05/10/25 11:00 Vital Signs Vital Signs Date Time Temp Pulse Resp B/P (MAP) Pulse Ox O2 Delivery O2 Flow Rate FiO2 05/10/25 09:23 18 97 Nasal Cannula* 3 32 05/10/25 07:49 60 05/10/25 07:48 97.4 107/52 (70) 97.4 Physical Exam Pt is lying on bed General Appearance: Alert, Oriented X3, Cooperative, Not in acute distress HEENT: Atraumatic, Mucous membranes moist/pink Respiratory: Decreased breath sounds, bilateral crackles Cardiovascular: Regular rate, Normal S1, Normal S2, No murmurs Abdominal: Active bowel sounds, Soft, no distention, no tenderness Extremities: 1+ BLE edema, Normal pulses, No tenderness/swelling Skin: No Significant rash, except past surgical scars Neuro: Normal speech, sensorimotor deficits none Psych/Mental Status: Mental status NL, Mood NL Nurse was there as dog obedience instructor during examination Labs/Diagnostic Data Labs Test 05/10/25 08:57 05/10/25 08:50 05/10/25 08:05 05/10/25 06:35 Range/Units POC Glucose 246 H 70-106 mg/dl Sodium Level 137 136-145 mmol/L Potassium Level 4.0 3.5-5.1 mmol/L Chloride Level 101 98-107 mmol/L Carbon Dioxide Level 25 20-31 mmol/L Anion Gap 11 5-15 Blood Urea Nitrogen 38 H 9-23 mg/dL Creatinine 1.62 H 0.550-1.02 mg/dL Glomerular Filtration Rate Calc 31 >90 mL/min BUN/Creatinine Ratio 23.5 H 10.0-20.0 Serum Glucose 262 H 74-106 mg/dL Calcium Level 7.8 L 8.7-10.4 mg/dL Total Bilirubin 0.5 0.2-1.0 mg/dL Aspartate Amino Transferase (AST) 26 13-40 U/L Alanine Aminotransferase (ALT) 15 7-40 U/L Alkaline Phosphatase 137 H 46-116 U/L Troponin I High Sensitivity 375 *H </=34 ng/L Total Protein 5.4 L 5.7-8.2 g/dL Albumin 3.1 L 3.2-4.8 g/dL SARS-CoV-2 Antigen (Rapid) Negative NEGATIVE Iron Level 12 L 50-170 ug/dL Total Iron Binding Capacity 266 250-425 ug/dL Percent Iron Saturation 4.5 L 15-50 % Test 05/10/25 05:24 05/10/25 01:58 05/10/25 00:06 Range/Units White Blood Count 16.0 H 4.4-10.8 10^3/uL Red Blood Count 3.80 L 4.0-5.20 10^6/uL Hemoglobin 10.3 L 12.2-16.2 g/dL Hematocrit 32.3 L 36.0-46.0 % Mean Corpuscular Volume 85.0 80.0-100.0 fL Mean Corpuscular Hemoglobin 27.1 L 28.0-32.0 pg Mean Corpuscular Hemoglobin Concent 31.9 L 32.0-36.0 g/dL Red Cell Distribution Width 17.4 H 11.8-14.3 % Platelet Count 174 140-450 10^3/uL Mean Platelet Volume 9.7 6.9-10.8 fL Neutrophils (%) (Auto) 87.0 H 37.0-80.0 % Lymphocytes (%) (Auto) 3.1 L 10.0-50.0 % Monocytes (%) (Auto) 9.0 0.0-12.0 % Eosinophils (%) (Auto) 0.5 0.0-7.0 % Basophils (%) (Auto) 0.4 0.0-2.0 % Neutrophils # (Auto) 13.9 H 1.6-8.6 10 ^3/uL Lymphocytes # (Auto) 0.5 0.4-5.4 10 ^3/uL Monocytes # (Auto) 1.4 H 0-1.3 10 ^3/uL Eosinophils # (Auto) 0.1 0-0.8 10 ^3/uL Basophils # (Auto) 0.1 0-0.2 10 ^3/uL Nucleated Red Blood Cells 0.0 % Hemoglobin A1c 6.4 H <5.7 % A1C Lactic Acid Level 1.4 0.4-2.0 mmol/L B-Type Natriuretic Peptide 1410.70 0-100 pg/mL Urine Color Yellow Yellow Urine Clarity Turbid H Clear Urine pH 6.0 5.0-9.0 Urine Specific [place] 1.020 1.001-1.035 Urine Protein 1+ H Negative Urine Ketones Negative Negative Urine Blood 2+ H Negative /uL Urine Nitrite Negative Negative Urine Bilirubin Negative Negative Urine Urobilinogen 2 H Negative mg/dL Urine Leukocyte Esterase 3+ Negative /uL Urine RBC 4 0 - 4 /hpf Urine Microscopic WBC 123 H 0-5 /HPF Urine Squamous Epithelial Cells Few <5 /hpf Urine Renal Epithelial Cells Few None Seen /hpf Urine Bacteria Many H None Seen /hpf Urine Mucus Few None Seen Urine Glucose Normal Normal mg/dL Magnesium Level 2.0 1.6-2.6 mg/dL Lipase 16 12-53 U/L Thyroid Stimulating Hormone (TSH) 1.46 0.55-4.78 uIU/mL Assessment Chronic HFpEF Sepsis with ? shock NSTEMI likely type 2 due to above ? 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 Manzanares. Plan discussed with: Patient Date of Service: May 10, 2025 Billing Provider: MAU MULTANI MD Common Visit Codes: [id number] CARE 30-74 MIN KALIA HER RESIDENT May 10, 2025 11:18
--- NOTE | 2025-05-10 11:34 | DVHSR ---
APPROVED REPORT EXAM: Two-dimensional and M-mode echocardiogram with Doppler and color Doppler. Blood Pressure: 107/52 mmHg INDICATION Eval for myocardial function RISK FACTORS Height: 67, Weight: 229 DIMENSIONS LVDd 4.2 (3.8-5.7cm) LA (2D) 4.1 (1.9-4.0cm) Aortic Root 3.8 (2.0-3.7cm) LVDs 3.1 (2.5-4.0cm) LA (MM) (1.9-4.0cm) Aortic Cusp Exc 1.5 (1.5-2.0cm) EF (%) 55.0 (55-70%) Rt. Atrium (1.9-4.0cm) Asc. Aorta cm Mitral Valve Mitral Mitral Stenosis E wave 1.18m/s MV Mean GR. 2mmHg A wave 0.37m/s MV Peak GR. 6mmHg E/A ratio 3.2 2D MVA cm2 DECEL Time 284ms PRESS 1/2 Time ms Aortic Valve Aortic Valve Aortic Stenosis V1 1.23m/s AO Mean GR. 7mmHg V2 1.75m/s AO Peak GR. 12mmHg LVOT Diameter 1.7 (1.8-2.4cm) Doppler ELIAN 1.59cm2 Pulmonic Valve V2 1.49m/s Tricuspid Valve TR Velocity 2.93m/s RVSP 44mmHg Other Information Technically limited study due to patient laying flat on her back during exam. Conclusion LAE EF >55% MOD MAC POSSIBLE PACEMAKER LEAD NOTED MILD AV CALCIFICATION WITH ADEQUATE CUSP EXCURSION CONC LVH MILD PAH MILD TR
[2025-05-10 11:54] LABS: Cholesterol 98 mg/dL (< 200)
[2025-05-10 11:55] LABS: HDL Cholesterol 8 mg/dL (40-59); Triglycerides 161 mg/dL (< 150)
--- NOTE | 2025-05-10 13:38 | DVHPN2 ---
Subjective I am assuming the care of the patient from today onwards who was under the care of the hospitalist team. 85-year-old female with multiple medical history initially presented to hospital with a generalized weakness abdominal pain as well as dysuria and difficulty in urination found to have UTI. 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 no motor deficit Medications Current Medications Medications Dose Ordered Sig/Varghese Route Start Time Stop Time Status Last Admin Dose Admin Acetaminophen/ Hydrocodone Bitart 1 tab Q4HP PRN PO 05/10/25 04:30 Docusate Sodium 100 mg BIDPRN PRN PO 05/10/25 04:30 Acetaminophen 650 mg Q6HP PRN PO 05/10/25 04:30 Nitroglycerin 0.4 mg Q5MINP PRN SL 05/10/25 04:30 Morphine Sulfate 2 mg Q30M PRN IV 05/10/25 04:30 Piperacillin Sod/ Tazobactam Sod 100 ml @ 25 mls/hr Q8HR IV 05/10/25 14:00 Vancomycin HCl 0 ml @ 0 mls/hr PER PHARMACY IV 05/10/25 04:30 Ipratropium [place] 0.5 mg Q4HPRN PRN NEB 05/10/25 04:30 Albuterol 1.25 mg Q4HPRN PRN NEB 05/10/25 04:30 Budesonide 0.5 mg BID NEB 05/10/25 10:00 05/10/25 09:22 0.5 MG Pantoprazole Sodium 40 mg DAILY IV 05/10/25 10:00 05/10/25 10:59 40 MG Aspirin 81 mg DAILY PO 05/10/25 10:00 05/10/25 10:59 81 MG Diagnostic Test (Pha) 1 strip IQ4HR 05/10/25 12:00 05/10/25 12:16 1 STRIP Insulin Human Regular IQ4HR SC 05/10/25 12:00 05/10/25 12:20 4 UNITS Dextrose 50 ml UD PRN IV 05/10/25 09:45 Clopidogrel Bisulfate 75 mg DAILY PO 05/10/25 10:00 05/10/25 11:00 75 MG Laboratory Results Laboratory Tests 05/10/25 05:24 05/10/25 08:50 Chemistry Test 05/10/25 00:06 05/10/25 08:50 Albumin 3.1 g/dL (3.2-4.8) L 3.1 g/dL (3.2-4.8) L Calcium Level 8.3 mg/dL (8.7-10.4) L 7.8 mg/dL (8.7-10.4) L Magnesium Level 2.0 mg/dL (1.6-2.6) Total Protein 5.6 g/dL (5.7-8.2) L 5.4 g/dL (5.7-8.2) L Lipid panel Test 05/10/25 00:06 05/10/25 08:50 Lipase 16 U/L (12-53) Cholesterol Level 98 mg/dL (< 200) HDL Cholesterol 8 mg/dL (40-59) L Triglycerides Level 161 mg/dL (< 150) H Cardiac Markers Test 05/10/25 00:06 05/10/25 05:24 B-Type Natriuretic Peptide 743.70 pg/mL (0-100) 1410.70 pg/mL (0-100) LFT Test 05/10/25 00:06 05/10/25 08:50 Alanine Aminotransferase (ALT) 21 U/L (7-40) 15 U/L (7-40) Alkaline Phosphatase 178 U/L (46-116) H 137 U/L (46-116) H Aspartate Amino Transferase (AST) 40 U/L (13-40) 26 U/L (13-40) Total Bilirubin 0.6 mg/dL (0.2-1.0) 0.5 mg/dL (0.2-1.0) HgA1c, TSH Test 05/10/25 00:06 05/10/25 05:24 Thyroid Stimulating Hormone (TSH) 1.46 uIU/mL (0.55-4.78) Hemoglobin A1c 6.4 % A1C (<5.7) H Urinalysis Test 05/10/25 01:58 Urine Color Yellow (Yellow) Urine Clarity Turbid (Clear) H Urine pH 6.0 (5.0-9.0) Urine Specific [place] 1.020 (1.001-1.035) Urine Protein 1+ (Negative) H Urine Ketones Negative (Negative) Urine Blood 2+ /uL (Negative) H Urine Nitrite Negative (Negative) Urine Bilirubin Negative (Negative) Urine Urobilinogen 2 mg/dL (Negative) H Urine Leukocyte Esterase 3+ /uL (Negative) Urine RBC 4 /hpf (0 - 4) Urine Microscopic WBC 123 /HPF (0-5) H Urine Squamous Epithelial Cells Few /hpf (<5) Urine Renal Epithelial Cells Few /hpf (None Seen) Urine Bacteria Many /hpf (None Seen) H Urine Mucus Few (None Seen) Urine Glucose Normal mg/dL (Normal) Assessment/Plan Assessment/Plan 85-year-old female with a known history of CKD, COPD, diabetes mellitus type 2, hypertension, previous history of DVT and PE status post IVC filter presented to the hospital with a generalized weakness abdominal pain found to have 1. Acute cystitis with a hematuria 2. Leukocytosis rule out sepsis 3. AKA with a underlying CKD 4. Elevated troponin suspect NSTEMI type 2 5. Acute on chronic congestive heart failure exacerbation with a diastolic dysfunction 6. COPD 7. Chronic respiratory failure on home O2 8 history of left leg DVT status post IVC filter 9. Morbid obesity classII -empirical IV antibiotics, follow up cultures follow up urine culture as well as-blood culture Physical therapy evaluation and treatment, plan of care discussed with the patient and patient's bedside RN as well as patient's daughter at bedside. Plan discussed with: Patient, Daughter My Orders Orders - GAIL SPAULDING MD Procedure Category Date Status Time Prothrombin Time W/ LAB 05/10/25 Verified INR 13:32 Date of Service: May 10, 2025 Billing Provider: GAIL SPAULDING MD Common Visit Codes: NOT BILLABLE GAIL SPAULDING MD May 10, 2025 13:38
[2025-05-10] MEDS: PIPERACILLIN-TAZOB 3.375GM 100 ML IV SCH (14:44)
[2025-05-10 15:30] LABS: INR 1.11 (0.9-1.15); Prothrombin Time 11.6 sec (9.3-11.8)
[2025-05-10] MEDS: IPRATROPIUM BROM 0.5 MG/2.5ML INH SOL NEB PRN (22:09)
[2025-05-10] MEDS: ALBUTEROL SULF 2.5 MG/0.5ML(0.5%) NEB SOLN NEB PRN (22:10)
[2025-05-11] VITALS (11 sets, daily range): BP systolic 110–132; BP diastolic 54–72; PULSE 60–90; RESP 14–24; TEMP 97.7–98.6; O2SAT 93–100
[2025-05-11] MEDS: VANCOMYCIN 750MG KIT 100 ML IV SCH (06:33)
[2025-05-11 06:48] LABS: Hematocrit 32.9 % (36.0-46.0); Hemoglobin 10.8 g/dL (12.2-16.2); Mean Corpuscular Hemoglobin 27.7 pg (28.0-32.0); Mean Corpuscular Volume 84.0 fL (80.0-100.0); Nucleated Red Blood Cells % 0.0 %
[2025-05-11] MEDS: PIPERACILLIN-TAZOB 3.375GM 100 ML IV SCH (09:16)
[2025-05-11] MEDS: REGADENOSON 0.4 MG/5 ML SYRG IV ONE ×2 (12:09→12:23)
--- NOTE | 2025-05-11 16:12 | DVHPN2 ---
Progress Note Date Seen: May 11, 2025 Resident Creating Document: KALIA HER RESIDENT Medical Necessity Reason Pt with a Central, PICC or Fol: No Subjective Review of Systems Review of Systems: Patient reported improvement in her symptoms since admission Patient reports: Feels better Objective vital signs Vital Sign Date Time Temp Pulse Resp B/P (MAP) Pulse Ox O2 Delivery O2 Flow Rate FiO2 05/11/25 10:00 Nasal Cannula* 3 32 05/11/25 09:05 97 05/11/25 09:05 60 18 05/11/25 09:00 98.6 121/72 (88) 98.6 Total Intake and Output 05/10/25 05/10/25 05/11/25 15:00 23:00 07:00 Intake Total 250 ml 70 ml 640 ml Output Total 2400 ml Balance 250 ml 70 ml -1760 ml medications Current Medications Medications Dose Ordered Sig/Varghese Route Start Time Stop Time Status Last Admin Dose Admin Acetaminophen/ Hydrocodone Bitart 1 tab Q4HP PRN PO 05/10/25 04:30 Docusate Sodium 100 mg BIDPRN PRN PO 05/10/25 04:30 Acetaminophen 650 mg Q6HP PRN PO 05/10/25 04:30 Nitroglycerin 0.4 mg Q5MINP PRN SL 05/10/25 04:30 Morphine Sulfate 2 mg Q30M PRN IV 05/10/25 04:30 Vancomycin HCl 0 ml @ 0 mls/hr PER PHARMACY IV 05/10/25 04:30 Ipratropium [place] 0.5 mg Q4HPRN PRN NEB 05/10/25 04:30 05/10/25 22:09 0.5 MG Albuterol 1.25 mg Q4HPRN PRN NEB 05/10/25 04:30 05/10/25 22:10 1.25 MG Budesonide 0.5 mg BID NEB 05/10/25 10:00 05/11/25 09:04 0.5 MG Pantoprazole Sodium 40 mg DAILY IV 05/10/25 10:00 05/11/25 09:16 40 MG Aspirin 81 mg DAILY PO 05/10/25 10:00 05/11/25 13:10 81 MG Dextrose 50 ml UD PRN IV 05/10/25 09:45 Clopidogrel Bisulfate 75 mg DAILY PO 05/10/25 10:00 05/11/25 13:10 75 MG Vancomycin HCl 100 ml @ 100 mls/hr Q24H IV 05/11/25 07:00 05/11/25 06:33 100 MLS/HR Piperacillin Sod/ Tazobactam Sod 100 ml @ 25 mls/hr Q8H IV 05/11/25 08:00 05/11/25 09:16 25 MLS/HR Diagnostic Test (Pha) 1 strip ACHS 05/11/25 17:00 Insulin Human Regular ACHS SC 05/11/25 17:00 UNV Examination Pt is lying on bed General Appearance: Alert, Oriented X3, Cooperative, Not in acute distress HEENT: Atraumatic, Mucous membranes moist/pink Respiratory: Decreased breath sounds, bilateral crackles Cardiovascular: Regular rate, Normal S1, Normal S2, No murmurs Abdominal: Active bowel sounds, Soft, no distention, no tenderness Extremities: 1+ BLE edema, Normal pulses, No tenderness/swelling Skin: No Significant rash, except past surgical scars Neuro: Normal speech, sensorimotor deficits none Psych/Mental Status: Mental status NL, Mood NL Nurse was there as plant tender during examination laboratory and microbiology Laboratory Tests 05/11/25 06:13 05/10/25 08:50 Test 05/10/25 08:50 Range/Units Serum Glucose 262 H 74-106 mg/dL Microbiology Date/Time Source Procedure Growth Status 05/10/25 00:55 Blood Blood Culture - Preliminary NO GROWTH AFTER 24 HOURS OF INCUBATION. Resulted 05/09/25 01:58 Urine - Midstream Clean Catch Urine Culture - Preliminary Resulted Labs and/or images reviewed: Labs reviewed by me, Image(s) reviewed by me Problem List/Assessment/Plan Problem List/Assessment/Plan Chronic HFpEF Sepsis with ? shock NSTEMI likely type 2 due to above ? 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 Manzanares. Plan discussed with: Patient, Daughter Date of Service: May 11, 2025 Billing Provider: MAU MULTANI MD Common Visit Codes: [id number] CARE 30-74 MIN KALIA HER RESIDENT May 11, 2025 16:12
--- NOTE | 2025-05-11 16:39 | DVHPN2 ---
Subjective Patient's blood cultures are negative to date, urine culture sensitivities pending. 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25 MG Budesonide 0.5 mg BID NEB 05/10/25 10:00 05/11/25 09:04 0.5 MG Pantoprazole Sodium 40 mg DAILY IV 05/10/25 10:00 05/11/25 09:16 40 MG Aspirin 81 mg DAILY PO 05/10/25 10:00 05/11/25 13:10 81 MG Dextrose 50 ml UD PRN IV 05/10/25 09:45 Clopidogrel Bisulfate 75 mg DAILY PO 05/10/25 10:00 05/11/25 13:10 75 MG Vancomycin HCl 100 ml @ 100 mls/hr Q24H IV 05/11/25 07:00 05/11/25 06:33 100 MLS/HR Piperacillin Sod/ Tazobactam Sod 100 ml @ 25 mls/hr Q8H IV 05/11/25 08:00 05/11/25 09:16 25 MLS/HR Diagnostic Test (Pha) 1 strip ACHS 05/11/25 17:00 Insulin Human Regular ACHS SC 05/11/25 17:00 UNV Laboratory Results Laboratory Tests 05/10/25 08:50 05/11/25 06:13 Urinalysis Test 05/10/25 01:58 Urine Color Yellow (Yellow) Urine Clarity Turbid (Clear) H Urine pH 6.0 (5.0-9.0) Urine Specific [place] 1.020 (1.001-1.035) Urine Protein 1+ (Negative) H Urine Ketones Negative (Negative) Urine Blood 2+ /uL (Negative) H Urine Nitrite Negative (Negative) Urine Bilirubin Negative (Negative) Urine Urobilinogen 2 mg/dL (Negative) H Urine Leukocyte Esterase 3+ /uL (Negative) Urine RBC 4 /hpf (0 - 4) Urine Microscopic WBC 123 /HPF (0-5) H Urine Squamous Epithelial Cells Few /hpf (<5) Urine Renal Epithelial Cells Few /hpf (None Seen) Urine Bacteria Many /hpf (None Seen) H Urine Mucus Few (None Seen) Urine Glucose Normal mg/dL (Normal) Microbiology Microbiology Date/Time Source Procedure Growth Status 05/10/25 00:55 Blood Blood Culture - Preliminary NO GROWTH AFTER 24 HOURS OF INCUBATION. Resulted 05/09/25 01:58 Urine - Midstream Clean Catch Urine Culture - Preliminary Resulted Assessment/Plan Assessment/Plan 85-year-old female with a known history of CKD, COPD, diabetes mellitus type 2, hypertension, previous history of DVT and PE status post IVC filter presented to the hospital with a generalized weakness abdominal pain found to have 1. Acute cystitis with a hematuria 2. Leukocytosis rule out sepsis 3. AKA with a underlying CKD 4. Elevated troponin suspect NSTEMI type 2 5. Acute on chronic congestive heart failure exacerbation with a diastolic dysfunction 6. COPD 7. Chronic respiratory failure on home O2 8 history of left leg DVT status post IVC filter 9. Morbid obesity classII -empirical IV antibiotics, follow up cultures follow up urine culture as well as-blood culture Physical therapy evaluation and treatment, plan of care discussed with the patient and patient's bedside RN as well as patient's daughter at bedside. Plan discussed with: Patient, Daughter My Orders Orders - GAIL SPAULDING MD Procedure Category Date Status Time * Infectious [place]- CONS 05/11/25 Transmitted [place] 13:41 Glucose Blood PHA 05/11/25 In Process (Accu-Chek Comfort 17:00 Insulin R (Human) PHA 05/11/25 Logged (Insulin R) 17:00 Date of Service: May 11, 2025 Billing Provider: GAIL SPAULDING MD Common Visit Codes: NOT BILLABLE GAIL SPAULDING MD May 11, 2025 16:39
[2025-05-11] MEDS: ACCU-CHEK COMFORT CURVE STRIP VI SCH (16:44)
[2025-05-11] MEDS: InsuLIN REG 1unit/0.01ml Soln (100units/ml) SC SCH (17:45)
--- NOTE | 2025-05-11 20:35 | DVHINCON2 ---
Date of service: May 11, [address] Hernandez Reason for Consultation UTI History of Present Illness Patient is a 85 y o female patient with severe COPD on home oxygen, diabetes, atrial fibrillation with pacemaker, congestive heart failure, and history of deep vein thrombosis. Who presented with several days of weakness, urinary difficulties, and systemic symptoms. Over the past few days, she experienced worsening weakness, progressing to the point where she was unable to get out of the bed. She also reported difficulty with urination, initially suspected to be due to a urinary tract infection. On Sunday, she informed her family that she was not feeling well. Her brother, who lives with her, called for emergency assistance as her condition deteriorated The patient developed additional symptoms including loss of appetite, hot and cold sweats, and shaking along with increasing difficulty breathing and chest tightness, She also noted a marked decline in her functional capacity from her baseline, where she normally could ambulate short distances with a walker and manage basic activities like going to the restroom independently. Due to profound weakness , she required ambulance transport to the hospital. 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 post IVC filter - Acute phlebitis, on anticoagulation therapy for over 30 years Past Surgical History Surgical History - Pacemaker placement over 10 years ago - Cardiac ablation for atrial fibrillation Family History Family history -noncontributory Social History Social History - Substance Use: Former smoker, quit 6 years ago - Occupation: Previously worked in a [employer] and a subsidiary of [employer] with exposure to extreme temperatures - Living Situation: Lives with brother, daughter lives 2 hours away Allergies: Coded Allergies: NO KNOWN ALLERGIES (Unverified , 07/13/11) Home Meds Reported Medications [Spiriva] No Conflict Check 07/13/11 Prednisone (Prednisone) Pow 07/13/11 [Potassium] No Conflict Check 07/13/11 [Warfarin] No Conflict Check 07/13/11 Pantoprazole Sodium (Protonix) William 07/13/11 [Levaquin] No Conflict Check 07/13/11 [Metoprolol] No Conflict Check 07/13/11 [Cozaar] No Conflict Check 07/13/11 [Actos] No Conflict Check 07/13/11 [Metformin] No Conflict Check 07/13/11 [Lasix] No Conflict Check 07/13/11 [Advair] No Conflict Check 07/13/11 Current Medications Current Medications Medications (Trade) Dose Ordered Sig/Vagrhese Route PRN Reason Start Time Stop Time Status Last Admin Vancomycin HCl 100 ml @ 100 mls/hr Q24H IV 05/11/25 07:00 05/11/25 06:33 Piperacillin Sod/ Tazobactam Sod 100 ml @ 25 mls/hr Q8H IV 05/11/25 08:00 05/11/25 16:44 Diagnostic Test (Pha) (Accu-Chek Comfort Curve T) 1 strip ACHS 05/11/25 17:00 05/11/25 16:44 Insulin Human Regular (InsuLIN R) ACHS SC 05/11/25 17:00 05/11/25 17:45 Review of Systems General: No Fever, chills, Positive for night sweats or weight loss HEENT: No Sinus pain, headache, vision changes or sore throat Respiratory: Positive for SOB, chest tightness, No Cough, dyspnea, sputum production Cardiovascular: No Chest pain, palpitations or leg edema Gastrointestinal: No Nausea, vomiting, diarrhea, abdominal pain Genitourinary: Positive for difficulty urination, No Dysuria, urinary frequency, hematuria, pelvic pain Skin: No Rashes, ulcers, abscesses, redness or swelling Musculoskeletal: No Joint pain, muscle pain or swelling Neurologic: No Altered mental status, headaches or focal neurological deficits Psychiatric:No Anxiety, depression or confusion Vital Signs Vital Signs Date Time Temp Pulse Resp B/P (MAP) Pulse Ox O2 Delivery O2 Flow Rate FiO2 05/11/25 19:21 60 18 100 05/11/25 19:16 Nasal Cannula* 4 36 05/11/25 16:51 98.4 122/62 (82) 98.4 Physical Exam General:Patient appears alert, comfortable and well-appearing. HEENT:Normocephalic, atraumatic, Sclera anicteric, conjunctiva clear,No nasal discharge or congestion. Mucous membranes moist, no tonsillar erythema or exudates. Neck:No cervical lymphadenopathy or masses.No neck stiffness. Lungs:Breath sounds clear bilaterally, no wheezes, rales, or rhonchi. No use of accessory muscles or respiratory distress. Cardiovascular:Regular rate and rhythm, no murmurs, rubs, or gallops. Abdomen:Soft, non-tender, non-distended.Bowel sounds present in all quadrants.No hepatosplenomegaly or masses. Skin:No rash, petechiae, or ecchymosis. Extremities:No edema, cyanosis, or clubbing.No tenderness to palpation, erythema, or swelling in joints.No signs of deep vein thrombosis (DVT). Neurologic:Patient is alert and oriented to person, place, and time.Cranial nerves II-XII intact.Motor strength 5/5 bilaterally in all extremities. Labs/Diagnostic Data Labs Test 05/11/25 16:49 05/11/25 06:13 05/10/25 14:56 05/10/25 08:50 Range/Units POC Glucose 239 H 70-106 mg/dl White Blood Count 13.2 H 4.4-10.8 10^3/uL Red Blood Count 3.92 L 4.0-5.20 10^6/uL Hemoglobin 10.8 L 12.2-16.2 g/dL Hematocrit 32.9 L 36.0-46.0 % Mean Corpuscular Volume 84.0 80.0-100.0 fL Mean Corpuscular Hemoglobin 27.7 L 28.0-32.0 pg Mean Corpuscular Hemoglobin Concent 32.9 32.0-36.0 g/dL Red Cell Distribution Width 17.4 H 11.8-14.3 % Platelet Count 193 140-450 10^3/uL Mean Platelet Volume 9.4 6.9-10.8 fL Neutrophils (%) (Auto) 77.8 37.0-80.0 % Lymphocytes (%) (Auto) 6.2 L 10.0-50.0 % Monocytes (%) (Auto) 14.6 H 0.0-12.0 % Eosinophils (%) (Auto) 1.0 0.0-7.0 % Basophils (%) (Auto) 0.4 0.0-2.0 % Neutrophils # (Auto) 10.3 H 1.6-8.6 10 ^3/uL Lymphocytes # (Auto) 0.8 0.4-5.4 10 ^3/uL Monocytes # (Auto) 1.9 H 0-1.3 10 ^3/uL Eosinophils # (Auto) 0.1 0-0.8 10 ^3/uL Basophils # (Auto) 0.1 0-0.2 10 ^3/uL Nucleated Red Blood Cells 0.0 % Creatinine 1.37 H 0.550-1.02 mg/dL Glomerular Filtration Rate Calc 38 >90 mL/min Prothrombin Time 11.6 9.3-11.8 sec Prothrombin Time INR 1.11 0.9-1.15 Sodium Level 137 136-145 mmol/L Potassium Level 4.0 3.5-5.1 mmol/L Chloride Level 101 98-107 mmol/L Carbon Dioxide Level 25 20-31 mmol/L Anion Gap 11 5-15 Blood Urea Nitrogen 38 H 9-23 mg/dL BUN/Creatinine Ratio 23.5 H 10.0-20.0 Serum Glucose 262 H 74-106 mg/dL Calcium Level 7.8 L 8.7-10.4 mg/dL Total Bilirubin 0.5 0.2-1.0 mg/dL Aspartate Amino Transferase (AST) 26 13-40 U/L Alanine Aminotransferase (ALT) 15 7-40 U/L Alkaline Phosphatase 137 H 46-116 U/L Troponin I High Sensitivity 375 *H </=34 ng/L Total Protein 5.4 L 5.7-8.2 g/dL Albumin 3.1 L 3.2-4.8 g/dL Triglycerides Level 161 H < 150 mg/dL Cholesterol Level 98 < 200 mg/dL LDL Cholesterol 37 < 100 mg/dL HDL Cholesterol 8 L 40-59 mg/dL Test 05/10/25 08:05 05/10/25 06:35 05/10/25 05:24 05/10/25 01:58 Range/Units SARS-CoV-2 Antigen (Rapid) Negative NEGATIVE Iron Level 12 L 50-170 ug/dL Total Iron Binding Capacity 266 250-425 ug/dL Percent Iron Saturation 4.5 L 15-50 % Vitamin B12 Level 1110 H 211-911 pg/mL Folic Acid 23.36 >5.38 ng/mL Hemoglobin A1c 6.4 H <5.7 % A1C Lactic Acid Level 1.4 0.4-2.0 mmol/L B-Type Natriuretic Peptide 1410.70 0-100 pg/mL Urine Color Yellow Yellow Urine Clarity Turbid H Clear Urine pH 6.0 5.0-9.0 Urine Specific [place] 1.020 1.001-1.035 Urine Protein 1+ H Negative Urine Ketones Negative Negative Urine Blood 2+ H Negative /uL Urine Nitrite Negative Negative Urine Bilirubin Negative Negative Urine Urobilinogen 2 H Negative mg/dL Urine Leukocyte Esterase 3+ Negative /uL Urine RBC 4 0 - 4 /hpf Urine Microscopic WBC 123 H 0-5 /HPF Urine Squamous Epithelial Cells Few <5 /hpf Urine Renal Epithelial Cells Few None Seen /hpf Urine Bacteria Many H None Seen /hpf Urine Mucus Few None Seen Urine Glucose Normal Normal mg/dL Test 05/10/25 00:06 Range/Units Magnesium Level 2.0 1.6-2.6 mg/dL Lipase 16 12-53 U/L Thyroid Stimulating Hormone (TSH) 1.46 0.55-4.78 uIU/mL Microbiology Date/Time Source Procedure Growth Status 05/10/25 00:55 Blood Blood Culture - Preliminary NO GROWTH AFTER 24 HOURS OF INCUBATION. Resulted 05/09/25 01:58 Urine - Midstream Clean Catch Urine Culture - Preliminary Resulted Assessment A 85-year-old female with UTI with GNRs Leukocytosis r/o sepsis URSULA on CKD Elevated troponin suspect NSTEMI type 2 Acute on chronic congestive heart failure exacerbation with a diastolic dysfunction COPD Chronic respiratory failure on home O2 history of left leg DVT status post IVC filter Morbid obesity Diabetes DNR Recommendations DC IV Vancomycin continue IV Zosyn blood cx no growth to date urine cx prelim shows GNR; follow NSTEMI defer to cardiology plan discussed with patient / RN Total time 80 minutes spent during the encounter thank you for consult Plan discussed with: Patient VIRIDIANA TORRES MD May 11, 2025 20:35
[2025-05-12] VITALS (12 sets, daily range): BP systolic 105–149; BP diastolic 40–129; PULSE 60–80; RESP 16–22; TEMP 97.2–98.7; O2SAT 93–100
--- NOTE | 2025-05-12 11:50 | DVHSR ---
APPROVED REPORT Exam: Nuclear Stress Test Indication: Chest pain BMI: 0 Stress Test Details Stress Test: Pharmacologic stress testing performed using 0.4 mg of regadenoson per 5 mL given IV over 10 seconds. HR Resting HR: 64 bpm Max Heart Rate (APMHR): 135.382219 bpm Max HR Achieved: 74 bpm Target HR (85% APMHR): 114.847463 bpm % of APMHR: 54.81 Recovery HR: 60 bpm BP Resting BP: 105/53 mmHg Recovery BP: 128/53 mmHg ECG Resting ECG: BBB, NSR Clinical Reason for Termination: Completed protocol Nurse Comments Recieved pt. from [facility]. A/Ox4 on 3 liters NC. Connected to ekg monitor, VS stable. PIV flushes well. Reviewed POC. Pt. verbalized understanding of procedure including risks and side effects, agrees for stress testing. Lexiscan stress test performed per protocol. [facility] tech administered Cardiolite. Pt. tolerated well. Pt. stable, no change on exam. VS returned to baseline. Transferred to [facility] via wheelchair w/ gurrney. Stress ECG Conclusion lvef 55% anterior wall infarct and ischemia ecg shows SR septal infarct NM EXAM: Myocardial Perfusion REST/STRESS Imaging Protocol: Rest Tc-99m/Stress Tc-99m 1 day Resting Data Rest SPECT myocardial perfusion imaging was performed in supine position 60 minutes following the intravenous injection of 11.0 mCi of Tc-99m Sestamibi. Time of rest injection: 10:38 Date: 05/11/2025 Time of rest imagin:38 Date: 05/11/2025 Administration Route: IV Administration Site: Right Arm Pharmacologic Stress Pharmacologic stress test was performed by injecting Regadenoson 0.4 mg IV push followed by the intravenous injection of 30.5 mCi of Tc-99m Sestamibi. Time of stress injection: 12:30 Date: 05/11/2025 Time of stress imagin:30 Date: 05/11/2025 Administration Route: IV Administration Site: Right Arm Gated Stress SPECT was performed 60 minutes after stress injection. The images were gated to evaluate regional wall motion and calculate left ventricular ejection fraction. Stress only was performed in the Supine position. Nuclear Conclusion Nuclear Findings: positive for ischemia lvef 55% anterior wall infarct and ischemia ecg shows SR septal infarct
--- NOTE | 2025-05-12 11:59 | DVHPN2 ---
Progress Note - Dictate Date Seen: May 12, 2025 Medical Necessity Reason Pt with a Central, PICC or Fol: No Subjective Feeling much better vital signs Vital Sign Date Time Temp Pulse Resp B/P (MAP) Pulse Ox O2 Delivery O2 Flow Rate FiO2 05/12/25 10:49 80 18 97 05/12/25 10:43 Nasal Cannula* 4 36 05/12/25 08:54 97.2 /129 97.2 Total Intake and Output 05/11/25 05/11/25 05/12/25 15:00 23:00 07:00 Intake Total 500 ml 480 ml Output Total 1000 ml 550 ml Balance -500 ml -70 ml medications Current Medications Medications Dose Ordered Sig/Varghese Route Start Time Stop Time Status Last Admin Dose Admin Acetaminophen/ Hydrocodone Bitart 1 tab Q4HP PRN PO 05/10/25 04:30 Docusate Sodium 100 mg BIDPRN PRN PO 05/10/25 04:30 Acetaminophen 650 mg Q6HP PRN PO 05/10/25 04:30 Nitroglycerin 0.4 mg Q5MINP PRN SL 05/10/25 04:30 Morphine Sulfate 2 mg Q30M PRN IV 05/10/25 04:30 Ipratropium Gem 0.5 mg Q4HPRN PRN NEB 05/10/25 04:30 05/12/25 10:42 0.5 MG Albuterol 1.25 mg Q4HPRN PRN NEB 05/10/25 04:30 05/12/25 10:43 1.25 MG Budesonide 0.5 mg BID NEB 05/10/25 10:00 05/12/25 10:42 0.5 MG Pantoprazole Sodium 40 mg DAILY IV 05/10/25 10:00 05/12/25 09:29 40 MG Aspirin 81 mg DAILY PO 05/10/25 10:00 05/12/25 09:29 81 MG Dextrose 50 ml UD PRN IV 05/10/25 09:45 Clopidogrel Bisulfate 75 mg DAILY PO 05/10/25 10:00 05/12/25 09:29 75 MG Piperacillin Sod/ Tazobactam Sod 100 ml @ 25 mls/hr Q8H IV 05/11/25 08:00 05/12/25 08:14 25 MLS/HR Diagnostic Test (Pha) 1 strip ACHS 05/11/25 17:00 05/12/25 11:04 1 STRIP Insulin Human Regular ACHS SC 05/11/25 17:00 05/11/25 21:13 8 UNITS objective General:Patient appears alert, comfortable and well-appearing. HEENT: Normocephalic, atraumatic, Sclera anicteric, conjunctiva clear, No nasal discharge or congestion. Mucous membranes moist, no tonsillar erythema or exudates. Neck: No cervical lymphadenopathy or masses.No neck stiffness. Lungs: Breath sounds clear bilaterally, no wheezes, rales, or rhonchi. No use of accessory muscles or respiratory distress. Cardiovascular: Regular rate and rhythm, no murmurs, rubs, or gallops. Abdomen:Soft, non-tender, non-distended.Bowel sounds present in all quadrants.No hepatosplenomegaly or masses. Skin: No rash, petechiae, or ecchymosis. Extremities:No edema, cyanosis, or clubbing.No tenderness to palpation, erythema, or swelling in joints.No signs of deep vein thrombosis (DVT). Neurologic:Patient is alert and oriented to person, place, and time.Cranial nerves II-XII intact.Motor strength 5/5 bilaterally in all extremities. laboratory and microbiology Laboratory Tests 05/12/25 05:56 05/11/25 06:13 05/10/25 08:50 Test 05/10/25 08:50 Range/Units Serum Glucose 262 H 74-106 mg/dL Assessment/Plan A 85-year-old female with UTI with GNRs Leukocytosis r/o sepsis URSULA on CKD Elevated troponin suspect NSTEMI type 2 Acute on chronic congestive heart failure exacerbation with a diastolic dysfunction COPD Chronic respiratory failure on home O2 history of left leg DVT status post IVC filter Morbid obesity Diabetes DNR Recommendations plan for angio tomorrow continue IV Zosyn blood cx no growth to date urine cx prelim shows GNR; follow NSTEMI defer to cardiology plan discussed with patient / RN Total time 50 minutes spent during the encounter thank you for consult Plan discussed with: VIRIDIANA Yang MD May 12, 2025 11:59
[2025-05-12] MEDS: CIPROFLOXACIN HCL 500 MG TAB PO ONE (14:43)
--- NOTE | 2025-05-12 15:45 | DVHPN2 ---
Progress Note Date Seen: May 12, 2025 Resident Creating Document: KALIA HER RESIDENT Medical Necessity Reason Pt with a Central, PICC or Fol: No Subjective Review of Systems Patient seen and examined at the bedside. Patient is still reporting having mild chest pain staff ROS is negative. Objective vital signs Vital Sign Date Time Temp Pulse Resp B/P (MAP) Pulse Ox O2 Delivery O2 Flow Rate FiO2 05/12/25 13:26 98.0 67 18 105/40 (61) 94 98.0 05/12/25 10:43 Nasal Cannula* 4 36 Total Intake and Output 05/11/25 05/11/25 05/12/25 15:00 23:00 07:00 Intake Total 500 ml 480 ml Output Total 1000 ml 550 ml Balance -500 ml -70 ml medications Current Medications Medications Dose Ordered Sig/Varghese Route Start Time Stop Time Status Last Admin Dose Admin Acetaminophen/ Hydrocodone Bitart 1 tab Q4HP PRN PO 05/10/25 04:30 Docusate Sodium 100 mg BIDPRN PRN PO 05/10/25 04:30 Acetaminophen 650 mg Q6HP PRN PO 05/10/25 04:30 Nitroglycerin 0.4 mg Q5MINP PRN SL 05/10/25 04:30 Morphine Sulfate 2 mg Q30M PRN IV 05/10/25 04:30 Ipratropium [place] 0.5 mg Q4HPRN PRN NEB 05/10/25 04:30 05/12/25 10:42 0.5 MG Albuterol 1.25 mg Q4HPRN PRN NEB 05/10/25 04:30 05/12/25 10:43 1.25 MG Budesonide 0.5 mg BID NEB 05/10/25 10:00 05/12/25 10:42 0.5 MG Pantoprazole Sodium 40 mg DAILY IV 05/10/25 10:00 05/12/25 09:29 40 MG Aspirin 81 mg DAILY PO 05/10/25 10:00 05/12/25 09:29 81 MG Dextrose 50 ml UD PRN IV 05/10/25 09:45 Clopidogrel Bisulfate 75 mg DAILY PO 05/10/25 10:00 05/12/25 09:29 75 MG Diagnostic Test (Pha) 1 strip ACHS 05/11/25 17:00 05/12/25 11:04 1 STRIP Insulin Human Regular ACHS SC 05/11/25 17:00 05/12/25 11:53 2 UNITS Ciprofloxacin 500 mg Q12HR PO 05/12/25 22:00 Examination Pt is lying on bed General Appearance: Alert, Oriented X3, Cooperative, Not in acute distress HEENT: Atraumatic, Mucous membranes moist/pink Respiratory: Decreased breath sounds, bilateral crackles Cardiovascular: Regular rate, Normal S1, Normal S2, No murmurs Abdominal: Active bowel sounds, Soft, no distention, no tenderness Extremities: 1+ BLE edema, Normal pulses, No tenderness/swelling Skin: No Significant rash, except past surgical scars Neuro: Normal speech, sensorimotor deficits none Psych/Mental Status: Mental status NL, Mood NL Nurse was there as industrial safety and health specialist during examination laboratory and microbiology Laboratory Tests 05/12/25 05:56 05/11/25 06:13 05/10/25 08:50 Test 05/10/25 08:50 Range/Units Serum Glucose 262 H 74-106 mg/dL Microbiology Date/Time Source Procedure Growth Status 05/10/25 00:55 Blood Blood Culture - Preliminary NO GROWTH AFTER 48 HOURS OF INCUBATION. Resulted 05/09/25 01:58 Urine - Midstream Clean Catch Urine Culture - Preliminary Enterobacter aerogenes Resulted Labs and/or images reviewed: Labs reviewed by me, Image(s) reviewed by me Problem List/Assessment/Plan Problem List/Assessment/Plan Chronic HFpEF Sepsis with ? shock NSTEMI likely type 2 due to above ? 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 Manzanares): Echocardiogram to evaluate cardiac function Troponins 791 > 731 > 733 > 566 > 475 > 375 GDMT as patient's BP and renal function permits CXR shows congestion and effusion BNP - 1410 Telemetry financial institution manager blood pressure continuously DVT prophylaxis Strict I&Os, daily weights Due to given risk factors we will schedule a inpatient Cardiolite stress test Nuclear Conclusion Nuclear Findings: positive for ischemia lvef 55% anterior wall infarct and ischemia ecg shows SR septal infarct We will schedule angiogram tomorrow Rest of management as per primary team Discussed with Dr. Manzanares. Plan discussed with: Patient My Orders My Orders Orders - KALIA HER RESIDENT Procedure Category Date Status Time Npo Except For [facility] 05/13/25 In Process Medications 00:01 Obtain Consent For: ORDERS 05/12/25 Transmitted 15:37 Hold Enoxaparin Day [facility] 05/13/25 In Process Of Procedu 00:01 D/C Tlc [facility] 05/12/25 In Process 15:37 Shave Both Groins [facility] 05/12/25 In Process 15:37 Provide Education [facility] 05/12/25 In Process Materials 15:37 Cl Left Heart Cath CL 05/13/25 Logged 15:37 Comprehensive LAB 05/14/25 Verified Metabolic Panel 04:00 Npo (Nothing By DIET 05/13/25 Transmitted Mouth) Diet Breakfast Npo (Nothing By DIET 05/12/25 Transmitted Mouth) Diet Dinner Obtain Consent For [facility] 05/12/25 In Process Anesthesia 15:37 Dietary Evaluation Review Comments: Nutrition Recommendation: 1) Consider CCHO 60gm + cardiac diet 2) Monitor PO intake, lab values, weight trend, and I/O Expected Outcomes/Goals: Lab values to improve FU 3-5 days Date of Service: May 12, 2025 Billing Provider: MAU MULTANI MD Common Visit Codes: [id number] CARE 30-74 MIN KALIA HER RESIDENT May 12, 2025 15:45
--- NOTE | 2025-05-12 17:23 | CONS ---
Pharmacy Clinical Information: CHF FALL OUT From Heart Failure Fallout Report on CQM Application, Sadie Briggs, is a 85-year-old female with PMH of HFpEF (LVEF 55%), afib, COPD, T2DM, HTN, remote DVT s/p IVC filter placement, and GERD. Home medications for heart failure include diltiazem and furosemide. Per 2024 ADA guidelines, in adults with diabetes aged >75 years, it may be reasonable to initiate moderate-intensity statin therapy after discussion of potential benefits and risks. [facility] RESIDENT May 12, 2025 17:23
--- NOTE | 2025-05-12 17:59 | DVHPN2 ---
Subjective Patient's blood cultures are negative to date, urine culture 70 came back Enterobacter. Changes from previous H/P or p: No Changes Objective Vitals Vital Signs Date Time Temp Pulse Resp B/P (MAP) Pulse Ox O2 Delivery O2 Flow Rate FiO2 05/12/25 17:29 98.0 60 18 149/82 (104) 96 98.0 05/12/25 10:43 Nasal Cannula* 4 36 Intake/Output Intake and Output 05/12/25 07:00 Intake Total 980 ml Output Total 1550 ml Balance -570 ml Intake Oral 980 ml Output Urine Total 1550 ml Exam HEENT pupils are reactive Neck is supple CV is S1-S2 regular rate and rhythm Respiratory diminished breath sounds bases GI positive bowel sound Extremity trace edema [employer] no motor deficit Medications Current Medications Medications Dose Ordered Sig/Varghese Route Start Time Stop Time Status Last Admin Dose Admin Acetaminophen/ Hydrocodone Bitart 1 tab Q4HP PRN PO 05/10/25 04:30 Docusate Sodium 100 mg BIDPRN PRN PO 05/10/25 04:30 Acetaminophen 650 mg Q6HP PRN PO 05/10/25 04:30 Nitroglycerin 0.4 mg Q5MINP PRN SL 05/10/25 04:30 Morphine Sulfate 2 mg Q30M PRN IV 05/10/25 04:30 Ipratropium [place] 0.5 mg Q4HPRN PRN NEB 05/10/25 04:30 05/12/25 10:42 0.5 MG Albuterol 1.25 mg Q4HPRN PRN NEB 05/10/25 04:30 05/12/25 10:43 1.25 MG Budesonide 0.5 mg BID NEB 05/10/25 10:00 05/12/25 10:42 0.5 MG Pantoprazole Sodium 40 mg DAILY IV 05/10/25 10:00 05/12/25 09:29 40 MG Aspirin 81 mg DAILY PO 05/10/25 10:00 05/12/25 09:29 81 MG Dextrose 50 ml UD PRN IV 05/10/25 09:45 Clopidogrel Bisulfate 75 mg DAILY PO 05/10/25 10:00 05/12/25 09:29 75 MG Diagnostic Test (Pha) 1 strip ACHS 05/11/25 17:00 05/12/25 17:04 1 STRIP Insulin Human Regular ACHS SC 05/11/25 17:00 05/12/25 17:46 8 UNITS Ciprofloxacin 500 mg Q12HR PO 05/12/25 22:00 Laboratory Results Laboratory Tests 05/10/25 08:50 05/11/25 06:13 05/12/25 05:56 Urinalysis Test 05/10/25 01:58 Urine Color Yellow (Yellow) Urine Clarity Turbid (Clear) H Urine pH 6.0 (5.0-9.0) Urine Specific [place] 1.020 (1.001-1.035) Urine Protein 1+ (Negative) H Urine Ketones Negative (Negative) Urine Blood 2+ /uL (Negative) H Urine Nitrite Negative (Negative) Urine Bilirubin Negative (Negative) Urine Urobilinogen 2 mg/dL (Negative) H Urine Leukocyte Esterase 3+ /uL (Negative) Urine RBC 4 /hpf (0 - 4) Urine Microscopic WBC 123 /HPF (0-5) H Urine Squamous Epithelial Cells Few /hpf (<5) Urine Renal Epithelial Cells Few /hpf (None Seen) Urine Bacteria Many /hpf (None Seen) H Urine Mucus Few (None Seen) Urine Glucose Normal mg/dL (Normal) Microbiology Microbiology Date/Time Source Procedure Growth Status 05/10/25 00:55 Blood Blood Culture - Preliminary NO GROWTH AFTER 48 HOURS OF INCUBATION. Resulted 05/09/25 01:58 Urine - Midstream Clean Catch Urine Culture - Preliminary Enterobacter aerogenes Resulted Assessment/Plan Assessment/Plan 85-year-old female with a known history of CKD, COPD, diabetes mellitus type 2, hypertension, previous history of DVT and PE status post IVC filter presented to the hospital with a generalized weakness abdominal pain found to have 1. Acute cystitis with a hematuria 2. Leukocytosis rule out sepsis 3. AKA with a underlying CKD 4. Elevated troponin suspect NSTEMI type 2 5. Acute on chronic congestive heart failure exacerbation with a diastolic dysfunction 6. COPD 7. Chronic respiratory failure on home O2 8 history of left leg DVT status post IVC filter 9. Morbid obesity classII Urine culture shows Enterobacter, discontinue Zosyn start ciprofloxacin Physical therapy evaluation and treatment, plan of care discussed with the patient and patient's bedside RN as well as patient's daughter at bedside. Plan discussed with: Patient My Orders Orders - GAIL SPAULDING MD Procedure Category Date Status Time Pt Request For Service PT 05/11/25 Logged 19:12 Ciprofloxacin Tablet PHA 05/12/25 In Process (Cipro Tablet) 22:00 Date of Service: May 12, 2025 Billing Provider: GAIL SPAULDING MD Common Visit Codes: NOT BILLABLE GAIL SPAULDING MD May 12, 2025 17:59
[2025-05-12] MEDS: CIPROFLOXACIN HCL 500 MG TAB PO SCH (21:44)
[2025-05-13] VITALS (19 sets, daily range): BP systolic 132–153; BP diastolic 50–69; PULSE 60–86; RESP 14–22; TEMP 97.5–99.8; O2SAT 91–99
--- NOTE | 2025-05-13 05:05 | DVH ---
CHEST RADIOGRAPH Indication: preop Technique: Single frontal view of the chest was obtained COMPARISON: CHEST PORTABLE on DOS: 02/16/22 FINDINGS: Lines and Tubes: Left chest pacemaker. Lungs: Unchanged to slightly increased pulmonary vascular congestion. Pleura: No effusion. No pneumothorax. Cardiomediastinal contours: Cardiomegaly. Bones: Unremarkable IMPRESSION: Unchanged to slightly increased pulmonary vascular congestion.
[2025-05-13 05:35] LABS: Hematocrit 35.7 % (36.0-46.0); Hemoglobin 11.3 g/dL (12.2-16.2); Mean Corpuscular Hemoglobin 27.4 pg (28.0-32.0); Mean Corpuscular Volume 86.3 fL (80.0-100.0); Nucleated Red Blood Cells % 0.0 %
[2025-05-13 05:41] LABS: Anion Gap 12 (5-15); Carbon Dioxide 26 mmol/L (20-31); Chloride 104 mmol/L (98-107); Potassium 4.2 mmol/L (3.5-5.1); Sodium 142 mmol/L (136-145)
[2025-05-13 05:43] LABS: Calcium 8.5 mg/dL (8.7-10.4)
[2025-05-13 05:47] LABS: BUN/Creatinine Ratio 12.6 (10.0-20.0); Blood Urea Nitrogen 13 mg/dL (9-23)
[2025-05-13 05:48] LABS: Glucose 156 mg/dL (74-106)
[2025-05-13 05:49] LABS: INR 1.2 (0.9-1.15); Partial Thromboplastin Time 22.9 SEC (24.5-34.5); Prothrombin Time 12.5 sec (9.3-11.8)
[2025-05-13 09:22] LABS: Urine Protein, UAD 1+ (Negative)
--- NOTE | 2025-05-13 11:12 | DVHPN2 ---
Progress Note - Dictate Date Seen: May 13, 2025 Medical Necessity Reason Pt with a Central, PICC or Fol: No Subjective Patient is still reporting having mild chest pain vital signs Vital Sign Date Time Temp Pulse Resp B/P (MAP) Pulse Ox O2 Delivery O2 Flow Rate FiO2 05/13/25 08:30 98.3 65 19 150/62 (91) 92 98.3 05/13/25 07:14 Nasal Cannula* 4 36 Total Intake and Output 05/12/25 05/12/25 05/13/25 15:00 23:00 07:00 Intake Total 100 ml 100 ml 0 ml Output Total 400 ml 550 ml Balance 100 ml -300 ml -550 ml medications Current Medications Medications Dose Ordered Sig/Varghese Route Start Time Stop Time Status Last Admin Dose Admin Acetaminophen/ Hydrocodone Bitart 1 tab Q4HP PRN PO 05/10/25 04:30 Docusate Sodium 100 mg BIDPRN PRN PO 05/10/25 04:30 Acetaminophen 650 mg Q6HP PRN PO 05/10/25 04:30 Nitroglycerin 0.4 mg Q5MINP PRN SL 05/10/25 04:30 Morphine Sulfate 2 mg Q30M PRN IV 05/10/25 04:30 Ipratropium [place] 0.5 mg Q4HPRN PRN NEB 05/10/25 04:30 05/12/25 19:24 0.5 MG Albuterol 1.25 mg Q4HPRN PRN NEB 05/10/25 04:30 05/12/25 19:24 1.25 MG Budesonide 0.5 mg BID NEB 05/10/25 10:00 05/13/25 07:14 0.5 MG Pantoprazole Sodium 40 mg DAILY IV 05/10/25 10:00 05/13/25 09:52 40 MG Aspirin 81 mg DAILY PO 05/10/25 10:00 05/13/25 09:53 81 MG Dextrose 50 ml UD PRN IV 05/10/25 09:45 Clopidogrel Bisulfate 75 mg DAILY PO 05/10/25 10:00 05/13/25 09:53 75 MG Diagnostic Test (Pha) 1 strip ACHS 05/11/25 17:00 05/13/25 06:26 1 STRIP Insulin Human Regular ACHS SC 05/11/25 17:00 05/12/25 21:42 2 UNITS Ciprofloxacin 500 mg Q12HR PO 05/12/25 22:00 05/13/25 09:54 500 MG objective General:Patient appears alert, comfortable and well-appearing. HEENT: Normocephalic, atraumatic, Sclera anicteric, conjunctiva clear, No nasal discharge or congestion. Mucous membranes moist, no tonsillar erythema or exudates. Neck: No cervical lymphadenopathy or masses.No neck stiffness. Lungs: Breath sounds clear bilaterally, no wheezes, rales, or rhonchi. No use of accessory muscles or respiratory distress. Cardiovascular: Regular rate and rhythm, no murmurs, rubs, or gallops. Abdomen:Soft, non-tender, non-distended.Bowel sounds present in all quadrants.No hepatosplenomegaly or masses. Skin: No rash, petechiae, or ecchymosis. Extremities:No edema, cyanosis, or clubbing.No tenderness to palpation, erythema, or swelling in joints.No signs of deep vein thrombosis (DVT). Neurologic:Patient is alert and oriented to person, place, and time.Cranial nerves II-XII intact.Motor strength 5/5 bilaterally in all extremities. laboratory and microbiology Laboratory Tests 05/13/25 05:06 Test 05/13/25 05:06 Range/Units Serum Glucose 156 H 74-106 mg/dL Assessment/Plan A 85-year-old female with UTI with E coli/ Enterobacter Leukocytosis r/o sepsis URSULA on CKD Elevated troponin suspect NSTEMI type 2 Acute on chronic congestive heart failure exacerbation with a diastolic dysfunction COPD Chronic respiratory failure on home O2 history of left leg DVT status post IVC filter Morbid obesity Diabetes DNR Recommendations continue IV Ciprofloxacin blood cx no growth to date plan for Angio today WBC elevated 19.2k urine cx : Enterobacter / Ecoli NSTEMI defer to cardiology Single view of chest x ray revealed unchanged to slightly increased pulmonary vascular congestion plan discussed with patient / RN Total time 50 minutes spent during the encounter thank you for consult Dietary Evaluation Review Comments: Nutrition Recommendation: 1) Consider CCHO 60gm + cardiac diet 2) Monitor PO intake, lab values, weight trend, and I/O Expected Outcomes/Goals: Lab values to improve FU 3-5 days Plan discussed with: VIRIDIANA Yang MD May 13, 2025 11:12
[2025-05-13] MEDS: fentaNYL CITRATE 100 MCG/2 ML VL ONE (12:52)
[2025-05-13] MEDS: HEPARIN SODIUM (PORCINE) 5000 UNITS/ML 1ML VIAL ONE (12:52)
[2025-05-13] MEDS: LIDOCAINE 2%HCL (LOCAL ANESTH.) INJ 20ML MDV ONE (12:53)
[2025-05-13] MEDS: ANGIOMAX 250 MG VIAL IV ONE (12:53)
[2025-05-13] MEDS: SODIUM CHL 0.9% 0 ML ONE (12:53)
[2025-05-13] MEDS: MIDAZOLAM HCL 2MG/2ML 2ml VIAL (1mg/ml) ONE (12:53)
[2025-05-13] MEDS: IOHEXOL 350 MG/ML 100ML IJ ONE (12:53)
--- NOTE | 2025-05-13 13:57 | DVHOP ---
HISTORY: The patient with shortness of breath. Has now signs and symptom complex of an abnormal stress test, anterior reversibility, anterolateral wall biphasic T-wave changes. The patient was septic at this time and the patient had adequate antibiotic therapy, now to undergo coronary angiography because of abnormal stress test, increasing shortness of breath. Risks and benefits were explained to the patient. The patient understands and agrees. Family members were there, talked to the daughter and the granddaughter as well. PROCEDURES PERFORMED: * Selective left and right coronary angiography. * Ventriculogram. * Right iliac angiography. * Conscious sedation. PROCEDURE: The patient was prepped and draped under sterile condition. 1% Xylocaine used to anesthetize the right groin. Using Cook needle, the right femoral artery was engaged with Seldinger technique. A 6-[place] sheath was placed in the right femoral artery. Using 6-[place] JL4 catheter and a 6-[place] JR4 catheter, selective left and right coronary angiography was performed. Using a 6-[place] pigtail catheter, ventriculogram was done. Total contrast used was 60 mL of Optiray. Total fluoro time was 2 minutes. RESULTS: * Left main patent. * Left anterior descending artery was patent. * Circumflex, nondominant vessel, was patent; however, the patient had extensive small vessel disease throughout the secondary and tertiary branches of the coronary artery. * Right coronary angiography showed the patient to have mild intimal irregularity. Once again, significant small vessel disease. Otherwise, no flow restrictive lesion. * Left ventricular function showed hyperdynamic contractility with an estimated EF of greater than 65% with an LVEDP of 15 mmHg with no gradient across the aortic valve. Thus, the patient with diastolic dysfunction, small vessel disease, but no significant epicardial disease was noted. The patient's anterior wall defect that was noted secondary to tissue attenuation because of the patient's body size. We will continue to follow the patient. Aggressive antihypertensive therapy should be initiated because the patient's blood pressure throughout the procedure was in the 180 range with left ventricular end-diastolic pressure of only 15. Leighton Corbin MD SA/MICHAEL TID: [id number] RECEIPT: [id number]
--- NOTE | 2025-05-13 15:01 | DVHPN2 ---
Subjective Patient's blood cultures are negative to date, urine culture came back Enterobacter and E coli Changes from previous H/P or p: No Changes Objective Vitals Vital Signs Date Time Temp Pulse Resp B/P (MAP) Pulse Ox O2 Delivery O2 Flow Rate FiO2 05/13/25 10:00 92 Nasal Cannula* 4 36 05/13/25 08:30 98.3 65 19 150/62 (91) 98.3 Intake/Output Intake and Output 05/13/25 07:00 Intake Total 200 ml Output Total 950 ml Balance -750 ml Intake Oral 100 ml IV Total 100 ml Output Urine Total 950 ml Exam HEENT pupils are reactive Neck is supple CV is S1-S2 regular rate and rhythm Respiratory diminished breath sounds bases GI positive bowel sound Extremity trace edema [employer] M[employer] no motor deficit Medications Current Medications Medications Dose Ordered Sig/Varghese Route Start Time Stop Time Status Last Admin Dose Admin Acetaminophen/ Hydrocodone Bitart 1 tab Q4HP PRN PO 05/10/25 04:30 Docusate Sodium 100 mg BIDPRN PRN PO 05/10/25 04:30 Acetaminophen 650 mg Q6HP PRN PO 05/10/25 04:30 Nitroglycerin 0.4 mg Q5MINP PRN SL 05/10/25 04:30 Morphine Sulfate 2 mg Q30M PRN IV 05/10/25 04:30 Ipratropium [place] 0.5 mg Q4HPRN PRN NEB 05/10/25 04:30 05/12/25 19:24 0.5 MG Albuterol 1.25 mg Q4HPRN PRN NEB 05/10/25 04:30 05/12/25 19:24 1.25 MG Budesonide 0.5 mg BID NEB 05/10/25 10:00 05/13/25 07:14 0.5 MG Pantoprazole Sodium 40 mg DAILY IV 05/10/25 10:00 05/13/25 09:52 40 MG Aspirin 81 mg DAILY PO 05/10/25 10:00 05/13/25 09:53 81 MG Dextrose 50 ml UD PRN IV 05/10/25 09:45 Clopidogrel Bisulfate 75 mg DAILY PO 05/10/25 10:00 05/13/25 09:53 75 MG Diagnostic Test (Pha) 1 strip ACHS 05/11/25 17:00 05/13/25 11:30 1 STRIP Insulin Human Regular ACHS SC 05/11/25 17:00 05/12/25 21:42 2 UNITS Ciprofloxacin 500 mg Q12HR PO 05/12/25 22:00 05/13/25 09:54 500 MG Laboratory Results Laboratory Tests 05/13/25 05:06 Chemistry Test 05/13/25 05:06 Calcium Level 8.5 mg/dL (8.7-10.4) L Coagulation Test 05/13/25 05:06 Prothrombin Time 12.5 sec (9.3-11.8) H Prothrombin Time INR 1.20 (0.9-1.15) H Activated Partial Thromboplast Time 22.9 SEC (24.5-34.5) L Urinalysis Test 05/10/25 01:58 05/13/25 08:49 Urine Renal Epithelial Cells Few /hpf (None Seen) Urine Mucus Few (None Seen) Urine Color Yellow (Yellow) Urine Clarity Turbid (Clear) H Urine pH 6.0 (5.0-9.0) Urine Specific [place] 1.019 (1.001-1.035) Urine Protein 1+ (Negative) H Urine Ketones Trace (Negative) Urine Blood 2+ /uL (Negative) H Urine Nitrite Negative (Negative) Urine Bilirubin Negative (Negative) Urine Urobilinogen Normal mg/dL (Negative) Urine Leukocyte Esterase 2+ /uL (Negative) Urine RBC 74 /hpf (0 - 4) Urine Microscopic WBC 42 /HPF (0-5) H Urine Squamous Epithelial Cells Few /hpf (<5) Urine Bacteria Few /hpf (None Seen) H Urine Glucose Normal mg/dL (Normal) Microbiology Microbiology Date/Time Source Procedure Growth Status 05/10/25 00:55 Blood Blood Culture - Preliminary NO GROWTH AFTER 72 HOURS OF INCUBATION. Resulted 05/09/25 01:58 Urine - Midstream Clean Catch Urine Culture - Final Enterobacter aerogenes Escherichia coli Complete Assessment/Plan Assessment/Plan 85-year-old female with a known history of CKD, COPD, diabetes mellitus type 2, hypertension, previous history of DVT and PE status post IVC filter presented to the hospital with a generalized weakness abdominal pain found to have 1. Acute cystitis with a hematuria 2. Leukocytosis rule out sepsis 3. AKA with a underlying CKD, improving 4. Elevated troponin suspect NSTEMI type 2 , Lexiscan positive, left heart catheterization today 5. Acute on chronic congestive heart failure exacerbation with a diastolic dysfunction 6. COPD 7. Chronic respiratory failure on home O2 8 history of left leg DVT status post IVC filter 9. Morbid obesity classII -left heart catheterization today, physical therapy evaluation and treatment Urine culture shows Enterobacter, discontinue Zosyn start ciprofloxacin Physical therapy evaluation and treatment, plan of care discussed with the patient and patient's bedside RN as well as patient's daughter at bedside. Plan discussed with: Patient My Orders Orders - GAIL SPAULDING MD Procedure Category Date Status Time Chest Portable XY 05/13/25 Resulted 04:09 Date of Service: May 13, 2025 Billing Provider: GAIL SPAULDING MD Common Visit Codes: NOT BILLABLE GAIL SPAULDING MD May 13, 2025 15:01
--- NOTE | 2025-05-13 15:38 | DVHPN2 ---
Progress Note - Dictate Date Seen: May 13, 2025 Medical Necessity Reason Pt with a Central, PICC or Fol: No Subjective SOB CARRANZA NOW WITH CHEST PAIN PMH DIABETES HTN AFIB WITH SSS' S/P SINGLE CHAMBER PPI S/P ABLATION NOW IN AFIB AGAIN HX OF DVT WITH IVC FILTER * vital signs Vital Sign Date Time Temp Pulse Resp B/P (MAP) Pulse Ox O2 Delivery O2 Flow Rate FiO2 05/13/25 10:00 92 Nasal Cannula* 4 36 05/13/25 08:30 98.3 65 19 150/62 (91) 98.3 Total Intake and Output 05/12/25 05/12/25 05/13/25 14:59 22:59 06:59 Intake Total 100 ml 100 ml 0 ml Output Total 400 ml 550 ml Balance 100 ml -300 ml -550 ml medications Current Medications Medications Dose Ordered Sig/Varghese Route Start Time Stop Time Status Last Admin Dose Admin Acetaminophen/ Hydrocodone Bitart 1 tab Q4HP PRN PO 05/10/25 04:30 Docusate Sodium 100 mg BIDPRN PRN PO 05/10/25 04:30 Acetaminophen 650 mg Q6HP PRN PO 05/10/25 04:30 Nitroglycerin 0.4 mg Q5MINP PRN SL 05/10/25 04:30 Morphine Sulfate 2 mg Q30M PRN IV 05/10/25 04:30 Ipratropium [place] 0.5 mg Q4HPRN PRN NEB 05/10/25 04:30 05/12/25 19:24 0.5 MG Albuterol 1.25 mg Q4HPRN PRN NEB 05/10/25 04:30 05/12/25 19:24 1.25 MG Budesonide 0.5 mg BID NEB 05/10/25 10:00 05/13/25 07:14 0.5 MG Pantoprazole Sodium 40 mg DAILY IV 05/10/25 10:00 05/13/25 09:52 40 MG Aspirin 81 mg DAILY PO 05/10/25 10:00 05/13/25 09:53 81 MG Dextrose 50 ml UD PRN IV 05/10/25 09:45 Clopidogrel Bisulfate 75 mg DAILY PO 05/10/25 10:00 05/13/25 09:53 75 MG Diagnostic Test (Pha) 1 strip ACHS 05/11/25 17:00 05/13/25 11:30 1 STRIP Insulin Human Regular ACHS SC 05/11/25 17:00 05/12/25 21:42 2 UNITS Ciprofloxacin 500 mg Q12HR PO 05/12/25 22:00 05/13/25 09:54 500 MG laboratory and microbiology Laboratory Tests 05/13/25 05:06 Test 05/13/25 05:06 Range/Units Serum Glucose 156 H 74-106 mg/dL Problem List ANGINA SOB ANGINA CARDIOOF S HTN AFIB WITH SSS' S/P SINGLE CHAMBER PPI S/P ABLATION NOW IN AFIB AGAIN HX OF DVT WITH IVC FILTER * Assessment/Plan [facility] NORMAL EPICARDIAL VESSELS SMALL VESSEL DISEASE Dietary Evaluation Review Comments: Nutrition Recommendation: 1) Consider CCHO 60gm + cardiac diet 2) Monitor PO intake, lab values, weight trend, and I/O Expected Outcomes/Goals: Lab values to improve FU 3-5 days Plan discussed with: Patient Critical Care Time(min): 35 MAU MULTANI MD May 13, 2025 15:38
--- NOTE | 2025-05-13 16:45 | DVHPN2 ---
Progress Note Date Seen: May 13, 2025 Resident Creating Document: KALIA HER RESIDENT Medical Necessity Reason Pt with a Central, PICC or Fol: No Subjective Review of Systems Patient seen and examined at bed side , no new complaints, improved chest pain, rest oif ROS negative Objective vital signs Vital Sign Date Time Temp Pulse Resp B/P (MAP) Pulse Ox O2 Delivery O2 Flow Rate FiO2 05/13/25 14:40 60 18 142/62 (88) 94 05/13/25 10:00 Nasal Cannula* 4 36 05/13/25 08:30 98.3 98.3 Total Intake and Output 05/12/25 05/12/25 05/13/25 15:00 23:00 07:00 Intake Total 100 ml 100 ml 0 ml Output Total 400 ml 550 ml Balance 100 ml -300 ml -550 ml medications Current Medications Medications Dose Ordered Sig/Varghese Route Start Time Stop Time Status Last Admin Dose Admin Acetaminophen/ Hydrocodone Bitart 1 tab Q4HP PRN PO 05/10/25 04:30 Docusate Sodium 100 mg BIDPRN PRN PO 05/10/25 04:30 Acetaminophen 650 mg Q6HP PRN PO 05/10/25 04:30 Nitroglycerin 0.4 mg Q5MINP PRN SL 05/10/25 04:30 Morphine Sulfate 2 mg Q30M PRN IV 05/10/25 04:30 Ipratropium [place] 0.5 mg Q4HPRN PRN NEB 05/10/25 04:30 05/12/25 19:24 0.5 MG Albuterol 1.25 mg Q4HPRN PRN NEB 05/10/25 04:30 05/12/25 19:24 1.25 MG Budesonide 0.5 mg BID NEB 05/10/25 10:00 05/13/25 07:14 0.5 MG Pantoprazole Sodium 40 mg DAILY IV 05/10/25 10:00 05/13/25 09:52 40 MG Aspirin 81 mg DAILY PO 05/10/25 10:00 05/13/25 09:53 81 MG Dextrose 50 ml UD PRN IV 05/10/25 09:45 Clopidogrel Bisulfate 75 mg DAILY PO 05/10/25 10:00 05/13/25 09:53 75 MG Diagnostic Test (Pha) 1 strip ACHS 05/11/25 17:00 05/13/25 11:30 1 STRIP Insulin Human Regular ACHS SC 05/11/25 17:00 05/12/25 21:42 2 UNITS Ciprofloxacin 500 mg Q12HR PO 05/12/25 22:00 05/13/25 09:54 500 MG Examination Pt is lying on bed General Appearance: Alert, Oriented X3, Cooperative, Not in acute distress HEENT: Atraumatic, Mucous membranes moist/pink Respiratory: Decreased breath sounds, bilateral crackles Cardiovascular: Regular rate, Normal S1, Normal S2, No murmurs Abdominal: Active bowel sounds, Soft, no distention, no tenderness Extremities: 1+ BLE edema, Normal pulses, No tenderness/swelling Skin: No Significant rash, except past surgical scars Neuro: Normal speech, sensorimotor deficits none Psych/Mental Status: Mental status NL, Mood NL Nurse was there as communications associate during examination laboratory and microbiology Laboratory Tests 05/13/25 05:06 Test 05/13/25 05:06 Range/Units Serum Glucose 156 H 74-106 mg/dL Microbiology Date/Time Source Procedure Growth Status 05/10/25 00:55 Blood Blood Culture - Preliminary NO GROWTH AFTER 72 HOURS OF INCUBATION. Resulted 05/09/25 01:58 Urine - Midstream Clean Catch Urine Culture - Final Enterobacter aerogenes Escherichia coli Complete Labs and/or images reviewed: Labs reviewed by me, Image(s) reviewed by me Problem List/Assessment/Plan Problem List/Assessment/Plan Chronic HFpEF Sepsis with ? shock NSTEMI likely type 2 due to above ? 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 Manzanares. We ll signoff .Thank you consulting us, please call if needed. Plan discussed with: Patient, Daughter Dietary Evaluation Review Comments: Nutrition Recommendation: 1) Consider CCHO 60gm + cardiac diet 2) Monitor PO intake, lab values, weight trend, and I/O Expected Outcomes/Goals: Lab values to improve FU 3-5 days Date of Service: May 13, 2025 Billing Provider: MAU MULTANI MD Common Visit Codes: [id number] CARE 30-74 MIN KALIA HER RESIDENT May 13, 2025 16:45
[2025-05-14] VITALS (15 sets, daily range): BP systolic 146–165; BP diastolic 46–81; PULSE 60–72; RESP 17–22; TEMP 97.1–98.7; O2SAT 94–99
[2025-05-14 07:18] LABS: Alanine Aminotransferase 16 U/L (7-40); Anion Gap 8 (5-15); BUN/Creatinine Ratio 16.8 (10.0-20.0); Blood Urea Nitrogen 16 mg/dL (9-23); Chloride 105 mmol/L (98-107); Potassium 4.3 mmol/L (3.5-5.1); Total Protein 6.0 g/dL (5.7-8.2)
[2025-05-14 07:19] LABS: Bilirubin, Total 0.6 mg/dL (0.2-1.0)
[2025-05-14 07:25] LABS: Albumin 3.1 g/dL (3.2-4.8); Alkaline Phosphatase 152 U/L (46-116); Calcium 8.3 mg/dL (8.7-10.4); Carbon Dioxide 32 mmol/L (20-31); Glucose 135 mg/dL (74-106); Sodium 145 mmol/L (136-145)
--- NOTE | 2025-05-14 08:02 | DVHPN2 ---
Progress Note - Dictate Date Seen: May 14, 2025 Medical Necessity Reason Pt with a Central, PICC or Fol: No Subjective SOB CARRANZA NOW WITH CHEST PAIN PMH DIABETES HTN AFIB WITH SSS' S/P SINGLE CHAMBER PPI S/P ABLATION NOW IN AFIB AGAIN HX OF DVT WITH IVC FILTER * vital signs Vital Sign Date Time Temp Pulse Resp B/P (MAP) Pulse Ox O2 Delivery O2 Flow Rate FiO2 05/14/25 06:30 60 18 99 05/14/25 06:26 Nasal Cannula 4.0 05/14/25 06:26 36 05/14/25 05:00 97.1 152/52 (85) 97.1 Total Intake and Output 05/13/25 05/13/25 05/14/25 15:00 23:00 07:00 Intake Total 0 ml 240 ml Output Total 500 ml 450 ml Balance -500 ml -210 ml medications Current Medications Medications Dose Ordered Sig/Varghese Route Start Time Stop Time Status Last Admin Dose Admin Acetaminophen/ Hydrocodone Bitart 1 tab Q4HP PRN PO 05/10/25 04:30 Docusate Sodium 100 mg BIDPRN PRN PO 05/10/25 04:30 Acetaminophen 650 mg Q6HP PRN PO 05/10/25 04:30 Nitroglycerin 0.4 mg Q5MINP PRN SL 05/10/25 04:30 Morphine Sulfate 2 mg Q30M PRN IV 05/10/25 04:30 Ipratropium [place] 0.5 mg Q4HPRN PRN NEB 05/10/25 04:30 05/14/25 06:19 0.5 MG Albuterol 1.25 mg Q4HPRN PRN NEB 05/10/25 04:30 05/14/25 06:19 1.25 MG Budesonide 0.5 mg BID NEB 05/10/25 10:00 05/14/25 06:19 0.5 MG Pantoprazole Sodium 40 mg DAILY IV 05/10/25 10:00 05/13/25 09:52 40 MG Aspirin 81 mg DAILY PO 05/10/25 10:00 05/13/25 09:53 81 MG Dextrose 50 ml UD PRN IV 05/10/25 09:45 Clopidogrel Bisulfate 75 mg DAILY PO 05/10/25 10:00 05/13/25 09:53 75 MG Diagnostic Test (Pha) 1 strip ACHS 05/11/25 17:00 05/14/25 06:36 1 STRIP Insulin Human Regular ACHS SC 05/11/25 17:00 05/14/25 06:36 2 UNITS Ciprofloxacin 500 mg Q12HR PO 05/12/25 22:00 05/13/25 21:55 500 MG laboratory and microbiology Laboratory Tests 05/14/25 06:13 05/13/25 05:06 Test 05/14/25 06:13 Range/Units Serum Glucose 135 H 74-106 mg/dL Problem List ANGINA SOB ANGINA CARDIOOF S HTN AFIB WITH SSS' S/P SINGLE CHAMBER PPI S/P ABLATION NOW IN AFIB AGAIN HX OF DVT WITH IVC FILTER * Assessment/Plan C NORMAL EPICARDIAL VESSELS SMALL VESSEL DISEASE MAY DC HOME CARDIAC STATUS STABLE PTs SX SECONDARY TO AFIB CONSIDER AMIODARONE ANTICOAGULATION CARDIOVERSION AFTER ADEQUATE AMIODARONE LOAD OUT PT Dietary Evaluation Review Comments: Nutrition Recommendation: 1) Consider CCHO 60gm + cardiac diet 2) Monitor PO intake, lab values, weight trend, and I/O Expected Outcomes/Goals: Lab values to improve FU 3-5 days Plan discussed with: Patient MAU MULTANI MD May 14, 2025 08:02
--- NOTE | 2025-05-14 09:58 | DVHPN2 ---
Progress Note - Dictate Date Seen: May 14, 2025 Medical Necessity Reason Pt with a Central, PICC or Fol: No Subjective gen weakness vital signs Vital Sign Date Time Temp Pulse Resp B/P (MAP) Pulse Ox O2 Delivery O2 Flow Rate FiO2 05/14/25 09:21 97.9 66 20 157/81 (106) 96 97.9 05/14/25 08:00 Nasal Cannula* 3 32 Total Intake and Output 05/13/25 05/13/25 05/14/25 15:00 23:00 07:00 Intake Total 0 ml 240 ml Output Total 500 ml 450 ml Balance -500 ml -210 ml medications Current Medications Medications Dose Ordered Sig/Varghese Route Start Time Stop Time Status Last Admin Dose Admin Acetaminophen/ Hydrocodone Bitart 1 tab Q4HP PRN PO 05/10/25 04:30 Docusate Sodium 100 mg BIDPRN PRN PO 05/10/25 04:30 Acetaminophen 650 mg Q6HP PRN PO 05/10/25 04:30 Nitroglycerin 0.4 mg Q5MINP PRN SL 05/10/25 04:30 Morphine Sulfate 2 mg Q30M PRN IV 05/10/25 04:30 Ipratropium [place] 0.5 mg Q4HPRN PRN NEB 05/10/25 04:30 05/14/25 06:19 0.5 MG Albuterol 1.25 mg Q4HPRN PRN NEB 05/10/25 04:30 05/14/25 06:19 1.25 MG Budesonide 0.5 mg BID NEB 05/10/25 10:00 05/14/25 06:19 0.5 MG Pantoprazole Sodium 40 mg DAILY IV 05/10/25 10:00 05/14/25 09:26 40 MG Aspirin 81 mg DAILY PO 05/10/25 10:00 05/14/25 09:26 81 MG Dextrose 50 ml UD PRN IV 05/10/25 09:45 Clopidogrel Bisulfate 75 mg DAILY PO 05/10/25 10:00 05/14/25 09:26 75 MG Diagnostic Test (Pha) 1 strip ACHS 05/11/25 17:00 05/14/25 06:36 1 STRIP Insulin Human Regular ACHS SC 05/11/25 17:00 05/14/25 06:36 2 UNITS Ciprofloxacin 500 mg Q12HR PO 05/12/25 22:00 05/14/25 09:26 500 MG objective General:Patient appears alert, comfortable and well-appearing. HEENT: Normocephalic, atraumatic, Sclera anicteric, conjunctiva clear, No nasal discharge or congestion. Mucous membranes moist, no tonsillar erythema or exudates. Neck: No cervical lymphadenopathy or masses.No neck stiffness. Lungs: Breath sounds clear bilaterally, no wheezes, rales, or rhonchi. No use of accessory muscles or respiratory distress. Cardiovascular: Regular rate and rhythm, no murmurs, rubs, or gallops. Abdomen:Soft, non-tender, non-distended.Bowel sounds present in all quadrants.No hepatosplenomegaly or masses. Skin: No rash, petechiae, or ecchymosis. Extremities:No edema, cyanosis, or clubbing.No tenderness to palpation, erythema, or swelling in joints.No signs of deep vein thrombosis (DVT). Neurologic:Patient is alert and oriented to person, place, and time.Cranial nerves II-XII intact.Motor strength 5/5 bilaterally in all extremities. laboratory and microbiology Laboratory Tests 05/14/25 06:13 05/13/25 05:06 Test 05/14/25 06:13 Range/Units Serum Glucose 135 H 74-106 mg/dL Assessment/Plan A 85-year-old female with UTI with Ecoli/ Enterobacter Leukocytosis r/o sepsis URSULA on CKD Elevated troponin suspect NSTEMI type 2 Acute on chronic congestive heart failure exacerbation with a diastolic dysfunction COPD Chronic respiratory failure on home O2 history of left leg DVT status post IVC filter Morbid obesity Diabetes DNR Recommendations continue IV Ciprofloxacin; taper to oral. total duration 5 days, two more days to go. blood cx no growth to date WBC elevated 16.2k; reactive urine cx shows E coli/ Enterobacter angio showed normal coronary arteries NSTEMI defer to cardiology Single view of chest x ray revealed unchanged to slightly increased pulmonary vascular congestion plan discussed with team Total time 50 minutes spent during the encounter thank you for consult Dietary Evaluation Review Comments: Nutrition Recommendation: 1) Consider CCHO 60gm + cardiac diet 2) Monitor PO intake, lab values, weight trend, and I/O Expected Outcomes/Goals: Lab values to improve FU 3-5 days Plan discussed with: VIRIDIANA Yang MD May 14, 2025 09:58
[2025-05-14 12:05] LABS: Hematocrit 32.6 % (36.0-46.0); Hemoglobin 10.3 g/dL (12.2-16.2); Mean Corpuscular Hemoglobin 27.1 pg (28.0-32.0); Mean Corpuscular Volume 85.7 fL (80.0-100.0); Nucleated Red Blood Cells % 0.0 %
--- NOTE | 2025-05-14 12:26 | DVHPN2 ---
Subjective Patient's blood cultures are negative to date, urine culture came back Enterobacter and E coli. Patient is very physically deconditioned Elvira getting up. Daughter was very concerned, all the questions were answered possible discharge in next 24-48 hours. 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 Medications Current Medications Medications Dose Ordered Sig/Varghese Route Start Time Stop Time Status Last Admin Dose Admin Acetaminophen/ Hydrocodone Bitart 1 tab Q4HP PRN PO 05/10/25 04:30 Docusate Sodium 100 mg BIDPRN PRN PO 05/10/25 04:30 Acetaminophen 650 mg Q6HP PRN PO 05/10/25 04:30 Nitroglycerin 0.4 mg Q5MINP PRN SL 05/10/25 04:30 Morphine Sulfate 2 mg Q30M PRN IV 05/10/25 04:30 Ipratropium [place] 0.5 mg Q4HPRN PRN NEB 05/10/25 04:30 05/14/25 06:19 0.5 MG Albuterol 1.25 mg Q4HPRN PRN NEB 05/10/25 04:30 05/14/25 06:19 1.25 MG Budesonide 0.5 mg BID NEB 05/10/25 10:00 05/14/25 06:19 0.5 MG Pantoprazole Sodium 40 mg DAILY IV 05/10/25 10:00 05/14/25 09:26 40 MG Aspirin 81 mg DAILY PO 05/10/25 10:00 05/14/25 09:26 81 MG Dextrose 50 ml UD PRN IV 05/10/25 09:45 Clopidogrel Bisulfate 75 mg DAILY PO 05/10/25 10:00 05/14/25 09:26 75 MG Diagnostic Test (Pha) 1 strip ACHS 05/11/25 17:00 05/14/25 11:35 1 STRIP Insulin Human Regular ACHS SC 05/11/25 17:00 05/14/25 11:45 8 UNITS Ciprofloxacin 500 mg Q12HR PO 05/12/25 22:00 05/14/25 09:26 500 MG Laboratory Results Laboratory Tests 05/14/25 06:13 Chemistry Test 05/14/25 06:13 Albumin 3.1 g/dL (3.2-4.8) L Calcium Level 8.3 mg/dL (8.7-10.4) L Magnesium Level 2.0 mg/dL (1.6-2.6) Total Protein 6.0 g/dL (5.7-8.2) LFT Test 05/14/25 06:13 Alanine Aminotransferase (ALT) 16 U/L (7-40) Alkaline Phosphatase 152 U/L (46-116) H Aspartate Amino Transferase (AST) 16 U/L (13-40) Total Bilirubin 0.6 mg/dL (0.2-1.0) Urinalysis Test 05/10/25 01:58 05/13/25 08:49 Urine Renal Epithelial Cells Few /hpf (None Seen) Urine Mucus Few (None Seen) Urine Color Yellow (Yellow) Urine Clarity Turbid (Clear) H Urine pH 6.0 (5.0-9.0) Urine Specific [place] 1.019 (1.001-1.035) Urine Protein 1+ (Negative) H Urine Ketones Trace (Negative) Urine Blood 2+ /uL (Negative) H Urine Nitrite Negative (Negative) Urine Bilirubin Negative (Negative) Urine Urobilinogen Normal mg/dL (Negative) Urine Leukocyte Esterase 2+ /uL (Negative) Urine RBC 74 /hpf (0 - 4) Urine Microscopic WBC 42 /HPF (0-5) H Urine Squamous Epithelial Cells Few /hpf (<5) Urine Bacteria Few /hpf (None Seen) H Urine Glucose Normal mg/dL (Normal) Microbiology Microbiology Date/Time Source Procedure Growth Status 05/10/25 00:55 Blood Blood Culture - Preliminary NO GROWTH AFTER 72 HOURS OF INCUBATION. Resulted 05/09/25 01:58 Urine - Midstream Clean Catch Urine Culture - Final Enterobacter aerogenes Escherichia coli Complete Assessment/Plan Assessment/Plan 85-year-old female with a known history of CKD, COPD, diabetes mellitus type 2, hypertension, previous history of DVT and PE status post IVC filter presented to the hospital with a generalized weakness abdominal pain found to have 1. Acute cystitis with a hematuria with a Enterobacter and E coli 2. Sepsis secondary to UTI, blood cultures are negative to date 3. URSULA with a underlying CKD, improving 4. Elevated troponin suspect NSTEMI type 2 , Lexiscan positive, left heart catheterization showed normal coronary arteries 5. Acute on chronic congestive heart failure exacerbation with a diastolic dysfunction 6. COPD 7. Chronic respiratory failure on home O2 8 history of left leg DVT status post IVC filter 9. Morbid obesity classII 10. Severe physical deconditioning -physical therapy evaluation and treatment -patient underwent left heart catheterization which shows normal coronary arteries physical therapy evaluation and treatment Urine culture shows Enterobacter, discontinue Zosyn started ciprofloxacin Physical therapy evaluation and treatment, plan of care discussed with the patient and patient's bedside RN as well as patient's daughter at bedside. Plan discussed with: Patient, Daughter Date of Service: May 14, 2025 Billing Provider: GAIL SPAULDING MD Common Visit Codes: NOT BILLABLE GAIL SPAULDING MD May 14, 2025 12:26
[2025-05-15] VITALS (10 sets, daily range): BP systolic 120–177; BP diastolic 62–79; PULSE 58–88; RESP 16–20; TEMP 97.2–98.2; O2SAT 93–97
[2025-05-15 07:16] LABS: Hemoglobin 10.2 g/dL (12.2-16.2); Nucleated Red Blood Cells % 0.1 %
[2025-05-15 07:19] LABS: Hematocrit 31.7 % (36.0-46.0); Mean Corpuscular Hemoglobin 27.5 pg (28.0-32.0); Mean Corpuscular Volume 85.2 fL (80.0-100.0)
[2025-05-15 07:22] LABS: Anion Gap 9 (5-15); Carbon Dioxide 30 mmol/L (20-31); Chloride 105 mmol/L (98-107); Potassium 4.0 mmol/L (3.5-5.1); Sodium 144 mmol/L (136-145)
[2025-05-15 07:28] LABS: BUN/Creatinine Ratio 12.8 (10.0-20.0); Blood Urea Nitrogen 11 mg/dL (9-23)
[2025-05-15 07:30] LABS: Calcium 8.2 mg/dL (8.7-10.4); Glucose 159 mg/dL (74-106)
--- NOTE | 2025-05-15 13:01 | DVHPN2 ---
Progress Note - Dictate Date Seen: May 15, 2025 Medical Necessity Reason Pt with a Central, PICC or Fol: No Subjective SOB CARRANZA NOW WITH CHEST PAIN PMH DIABETES HTN AFIB WITH SSS' S/P SINGLE CHAMBER PPI S/P ABLATION NOW IN AFIB AGAIN HX OF DVT WITH IVC FILTER * vital signs Vital Sign Date Time Temp Pulse Resp B/P (MAP) Pulse Ox O2 Delivery O2 Flow Rate FiO2 05/15/25 10:00 96 Nasal Cannula 3.0 05/15/25 10:00 32 05/15/25 09:00 98.2 66 17 156/70 (98) 98.2 Total Intake and Output 05/14/25 05/14/25 05/15/25 15:00 23:00 07:00 Intake Total 600 ml 1000 ml Output Total 500 ml Balance 100 ml 1000 ml medications Current Medications Medications Dose Ordered Sig/Varghese Route Start Time Stop Time Status Last Admin Dose Admin Acetaminophen/ Hydrocodone Bitart 1 tab Q4HP PRN PO 05/10/25 04:30 Docusate Sodium 100 mg BIDPRN PRN PO 05/10/25 04:30 Acetaminophen 650 mg Q6HP PRN PO 05/10/25 04:30 Nitroglycerin 0.4 mg Q5MINP PRN SL 05/10/25 04:30 Morphine Sulfate 2 mg Q30M PRN IV 05/10/25 04:30 Ipratropium [place] 0.5 mg Q4HPRN PRN NEB 05/10/25 04:30 05/15/25 06:45 0.5 MG Albuterol 1.25 mg Q4HPRN PRN NEB 05/10/25 04:30 05/15/25 06:45 1.25 MG Budesonide 0.5 mg BID NEB 05/10/25 10:00 05/15/25 06:45 0.5 MG Pantoprazole Sodium 40 mg DAILY IV 05/10/25 10:00 05/15/25 09:23 40 MG Aspirin 81 mg DAILY PO 05/10/25 10:00 05/15/25 09:23 81 MG Dextrose 50 ml UD PRN IV 05/10/25 09:45 Clopidogrel Bisulfate 75 mg DAILY PO 05/10/25 10:00 05/15/25 09:24 75 MG Diagnostic Test (Pha) 1 strip ACHS 05/11/25 17:00 05/15/25 12:21 1 STRIP Insulin Human Regular ACHS SC 05/11/25 17:00 05/15/25 12:24 8 UNITS Ciprofloxacin 500 mg Q12HR PO 05/12/25 22:00 05/15/25 09:23 500 MG laboratory and microbiology Laboratory Tests 05/15/25 06:04 Test 05/15/25 06:04 Range/Units Serum Glucose 159 H 74-106 mg/dL Problem List ANGINA SOB ANGINA CARDIOOF S HTN AFIB WITH SSS' S/P SINGLE CHAMBER PPI S/P ABLATION NOW IN AFIB AGAIN HX OF DVT WITH IVC FILTER * Assessment/Plan [facility] NORMAL EPICARDIAL VESSELS SMALL VESSEL DISEASE MAY DC HOME CARDIAC STATUS STABLE PTs SX SECONDARY TO AFIB CONSIDER AMIODARONE ANTICOAGULATION CARDIOVERSION AFTER ADEQUATE AMIODARONE LOAD OUT PT Dietary Evaluation Review Comments: Nutrition Recommendation: 1) Consider CCHO 60gm + cardiac diet 2) Monitor PO intake, lab values, weight trend, and I/O Expected Outcomes/Goals: Lab values to improve FU 3-5 days Plan discussed with: Patient MAU MULTANI MD May 15, 2025 13:01
--- NOTE | 2025-05-15 14:41 | MEDREC ---
[facility] ASP Intervention Section I [facility] ASP Intervention: Review courses of therapy (CONSIDER D/C CIPRO. IDSA GUIDELINES RECOMMEND 5-7 DAYS OF TREATMENT USING FLUOROQUINOLONES FOR UTI. ) [facility] RESIDENT May 15, 2025 14:41
[2025-05-15] MEDS ORDERED: CEFD300C2 PO (14:49)
[2025-05-15] MEDS ORDERED: ASPI-316 PO (14:49)
--- NOTE | 2025-05-15 14:54 | DVHDS2 ---
Discharge Summary Date of Admission May 10, 2025 at 04:24 Date of Discharge: May 15, 2025 Labs/Diagnostic Data: Laboratory Results Test 05/15/25 12:13 05/15/25 06:04 05/14/25 06:13 05/13/25 08:49 POC Glucose 222 mg/dl (70-106) White Blood Count 12.5 10^3/uL (4.4-10.8) Red Blood Count 3.72 10^6/uL (4.0-5.20) Hemoglobin 10.2 g/dL (12.2-16.2) Hematocrit 31.7 % (36.0-46.0) Mean Corpuscular Volume 85.2 fL (80.0-100.0) Mean Corpuscular Hemoglobin 27.5 pg (28.0-32.0) Mean Corpuscular Hemoglobin Concent 32.3 g/dL (32.0-36.0) Red Cell Distribution Width 16.8 % (11.8-14.3) Platelet Count 276 10^3/uL (140-450) Mean Platelet Volume 8.6 fL (6.9-10.8) Neutrophils (%) (Auto) 82.4 % (37.0-80.0) Lymphocytes (%) (Auto) 7.2 % (10.0-50.0) Monocytes (%) (Auto) 8.4 % (0.0-12.0) Eosinophils (%) (Auto) 1.4 % (0.0-7.0) Basophils (%) (Auto) 0.6 % (0.0-2.0) Neutrophils # (Auto) 10.3 10 ^3/uL (1.6-8.6) Lymphocytes # (Auto) 0.9 10 ^3/uL (0.4-5.4) Monocytes # (Auto) 1.0 10 ^3/uL (0-1.3) Eosinophils # (Auto) 0.2 10 ^3/uL (0-0.8) Basophils # (Auto) 0.1 10 ^3/uL (0-0.2) Nucleated Red Blood Cells 0.1 % Sodium Level 144 mmol/L (136-145) Potassium Level 4.0 mmol/L (3.5-5.1) Chloride Level 105 mmol/L (98-107) Carbon Dioxide Level 30 mmol/L (20-31) Anion Gap 9 (5-15) Blood Urea Nitrogen 11 mg/dL (9-23) Creatinine 0.86 mg/dL (0.550-1.02) Glomerular Filtration Rate Calc 66 mL/min (>90) BUN/Creatinine Ratio 12.8 (10.0-20.0) Serum Glucose 159 mg/dL (74-106) Calcium Level 8.2 mg/dL (8.7-10.4) Magnesium Level 2.0 mg/dL (1.6-2.6) Total Bilirubin 0.6 mg/dL (0.2-1.0) Aspartate Amino Transferase (AST) 16 U/L (13-40) Alanine Aminotransferase (ALT) 16 U/L (7-40) Alkaline Phosphatase 152 U/L (46-116) Total Protein 6.0 g/dL (5.7-8.2) Albumin 3.1 g/dL (3.2-4.8) Urine Color Yellow (Yellow) Urine Clarity Turbid (Clear) Urine pH 6.0 (5.0-9.0) Urine Specific [place] 1.019 (1.001-1.035) Urine Protein 1+ (Negative) Urine Ketones Trace (Negative) Urine Blood 2+ /uL (Negative) Urine Nitrite Negative (Negative) Urine Bilirubin Negative (Negative) Urine Urobilinogen Normal mg/dL (Negative) Urine Leukocyte Esterase 2+ /uL (Negative) Urine RBC 74 /hpf (0 - 4) Urine Microscopic WBC 42 /HPF (0-5) Urine Squamous Epithelial Cells Few /hpf (<5) Urine Bacteria Few /hpf (None Seen) Urine Glucose Normal mg/dL (Normal) Test 05/13/25 05:06 05/12/25 05:56 05/10/25 08:50 05/10/25 08:05 Prothrombin Time 12.5 sec (9.3-11.8) Prothrombin Time INR 1.20 (0.9-1.15) Activated Partial Thromboplast Time 22.9 SEC (24.5-34.5) Vancomycin Level Trough 10.2 ug/mL (5-10) Troponin I High Sensitivity 375 ng/L (</=34) Triglycerides Level 161 mg/dL (< 150) Cholesterol Level 98 mg/dL (< 200) LDL Cholesterol 37 mg/dL (< 100) HDL Cholesterol 8 mg/dL (40-59) SARS-CoV-2 Antigen (Rapid) Negative (NEGATIVE) Test 05/10/25 06:35 05/10/25 05:24 05/10/25 01:58 05/10/25 00:06 Iron Level 12 ug/dL (50-170) Total Iron Binding Capacity 266 ug/dL (250-425) Percent Iron Saturation 4.5 % (15-50) Vitamin B12 Level 1110 pg/mL (211-911) Folic Acid 23.36 ng/mL (>5.38) Hemoglobin A1c 6.4 % A1C (<5.7) Lactic Acid Level 1.4 mmol/L (0.4-2.0) B-Type Natriuretic Peptide 1410.70 pg/mL (0-100) Urine Renal Epithelial Cells Few /hpf (None Seen) Urine Mucus Few (None Seen) Lipase 16 U/L (12-53) Thyroid Stimulating Hormone (TSH) 1.46 uIU/mL (0.55-4.78) Other Laboratory Tests 05/15/25 06:04 Brief Hx & Hospital Course: An 85-year-old female with significant past medical history of * Congestive heart failure (CHF, unknown type ordered an ECHO) * Atrial fibrillation, s/p catheter ablation and permanent pacemaker * Chronic obstructive pulmonary disease (COPD) on 3 L home O2 * Type 2 diabetes mellitus (insulin-dependent) * Hypertension * Remote deep-vein thrombosis (DVT) s/p IVC filter placement * GERDpresented to the ED via EMS for increasing confusion, generalized weakness, dizziness, poor appetite, suprapubic abdominal pain, and oliguria for one day. Per daughter, the patient was sweaty, clammy, unable to ambulate, and complained of burning dysuria with foul-smelling urine. She has chronic cough with sputum and dyspnea at baseline on 3 L O?. No fever, chest pain, melena, or hematemesis. She fell on 04/25/25, had a negative head CT/MRI at [facility]. She is admitted and treated with the IV fluids empiric antibiotics for her UTI. Blood cultures negative for any growth. Urine cultures growing multiple organisms for which she received appropriate IV antibiotics and transitioned to oral antibiotics per ID recommendation. Patient had elevated troponins and underwent stress test which apparently was abnormal therefore she had a coronary angiogram showed normal coronary arteries to me without any stenosis. Patient is recommended medical treatment. Otherwise while in the hospital patient remained clinically stable however weak and recommended to go to [facility] facility. However patient and daughter who is at bedside refused for her to go to [facility] facility. Apparently daughter is there 24 hours to take care of mom/patient and wants to go home. Therefore home health with home physical therapy walker being arranged. I have talked to the patient and daughter along with the nurse at bedside once again today regarding fall risk at home and advised them to go to [facility] facility. However they refused today as well and want her to go home. I have told them if patient does not significantly improve and continued to be weak with a fall risk then consider rethinking [facility] facility and to call [facility] outpatient to coordinate [facility] facility placement as appropriate. I have also talked with the patient in the daughter along with the nurse at bedside regarding her lab results coronary angiogram report and discharge medications as well as discharge instructions and follow-up plan of care. They have verbalized understanding of these and agree with the care plan as outlined. Operations or Procedures HISTORY: The patient with shortness of breath. Has now signs and symptom complex of an abnormal stress test, anterior reversibility, anterolateral wall biphasic T-wave changes. The patient was septic at this time and the patient had adequate antibiotic therapy, now to undergo coronary angiography because of abnormal stress test, increasing shortness of breath. Risks and benefits were explained to the patient. The patient understands and agrees. Family members were there, talked to the daughter and the granddaughter as well. PROCEDURES PERFORMED: * Selective left and right coronary angiography. * Ventriculogram. * Right iliac angiography. * Conscious sedation. PROCEDURE: The patient was prepped and draped under sterile condition. 1% Xylocaine used to anesthetize the right groin. Using Cook needle, the right femoral artery was engaged with Seldinger technique. A 6-Nepalese sheath was placed in the right femoral artery. Using 6-Nepalese JL4 catheter and a 6-[place]epalese JR4 catheter, selective left and right coronary angiography was performed. Using a 6-[place]epalese pigtail catheter, ventriculogram was done. Total contrast used was 60 mL of Optiray. Total fluoro time was 2 minutes. RESULTS: * Left main patent. * Left anterior descending artery was patent. * Circumflex, nondominant vessel, was patent; however, the patient had extensive small vessel disease throughout the secondary and tertiary branches of the coronary artery. * Right coronary angiography showed the patient to have mild intimal irregularity. Once again, significant small vessel disease. Otherwise, no flow restrictive lesion. * Left ventricular function showed hyperdynamic contractility with an estimated EF of greater than 65% with an LVEDP of 15 mmHg with no gradient across the aortic valve. Thus, the patient with diastolic dysfunction, small vessel disease, but no significant epicardial disease was noted. The patient's anterior wall defect that was noted secondary to tissue attenuation because of the patient's body size. We will continue to follow the patient. Aggressive antihypertensive therapy should be initiated because the patient's blood pressure throughout the procedure was in the 180 range with left ventricular end-diastolic pressure of only 15. Leighton Corbin MD SA/MICHAEL Condition at Discharge: Stable Final Diagnosis/Problems List Acute UTI, demand ischemia status post normal coronary angiogram, physical deconditioning, chronic atrial fibrillation Secondary Diagnosis: 1. Acute cystitis with a hematuria with a Enterobacter and E coli 2. Sepsis secondary to UTI, blood cultures are negative to date 3. URSULA with a underlying CKD, improving 4. Elevated troponin suspect NSTEMI type 2 , Lexiscan positive, left heart catheterization showed normal coronary arteries 5. Acute on chronic congestive heart failure exacerbation with a diastolic dysfunction 6. COPD 7. Chronic respiratory failure on home O2 8 history of left leg DVT status post IVC filter 9. Morbid obesity classII 10. Severe physical deconditioning Discharge Disposition: Home with Health Services Discharge Instruct/Medications Diet: Consistent carbohydrate, Cardiac 2g Na,low cholest Activity: No Restrictions, As Tolerated Activity comment: With the assistance and walker Follow Up/Referral: Primary care physician and manager rehab in 1-2 weeks for further management of urinary tract infection and heart problems Medications: Take the medications as prescribed Scheduled Aspirin (Aspirin EC Adult Low Dose), 81 MG PO DAILY Cefdinir (Cefdinir), 1 CAP PO BID Miscellaneous Medications Pantoprazole Sodium (Protonix), (Reported) Prednisone (Prednisone), (Reported) [Actos], (Reported) [Advair], (Reported) [Cozaar], (Reported) [Lasix], (Reported) [Levaquin], (Reported) [Metformin], (Reported) [Metoprolol], (Reported) [Potassium], (Reported) [Spiriva], (Reported) [Warfarin], (Reported) Discharge Statement: "Patient was advised to return to the ER or call 911 if any headaches, dizziness, shortness of breath, chest pain, abdominal pain, bleeding, fevers, or worsening of medical condition. Patient was counseled about treatment plan, medications, possible side effects, patientverbalized understanding. All questions were answered to the best of my ability. This discharge took greater then 30 minutes in planning, reviewing documentation, counseling the patient, and discussing with other team members." ASSESSMENT ASSESSMENT Assessment Acute UTI, demand ischemia status post normal coronary angiogram, physical deconditioning, chronic atrial fibrillation SALLIE GRIFFIN MD May 15, 2025 14:54
--- NOTE | 2025-05-18 13:17 | ECG ---
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
== END 2025-05-15 17:14 | disposition home health service (06) | DRG 871 ==
LOC: ER 22:59 → EDBD 22:59 → EDUNIT# 22:59 → OVERFLOW 05-10 04:24 → TELE-EAST 05-10 14:06
PROVIDERS: ADMIT Internal Medicine; ATTEND Internal Medicine
PROC: 4A023N7 Measurement of Cardiac Sampling and Pressure, Left Heart, Percutaneous Approach (ICD-10-PCS; principal; 2025-05-13)
PROC: B211YZZ Fluoroscopy of Multiple Coronary Arteries using Other Contrast (ICD-10-PCS; 2025-05-13)
PROC: B215YZZ Fluoroscopy of Left Heart using Other Contrast (ICD-10-PCS; 2025-05-13)
DX: A41.50 Gram-negative sepsis, unspecified (principal); I21.A1 Myocardial infarction type 2; I50.33 Acute on chronic diastolic (congestive) heart failure; J96.10 Chronic respiratory failure, unspecified whether with hypoxia or hypercapnia; Z66 Do not resuscitate; I13.0 Hypertensive heart and chronic kidney disease with heart failure and stage 1 through stage 4 chronic kidney disease, or unspecified chronic kidney disease; N30.01 Acute cystitis with hematuria; E11.22 Type 2 diabetes mellitus with diabetic chronic kidney disease; N18.9 Chronic kidney disease, unspecified; E66.01 Morbid (severe) obesity due to excess calories; Z95.828 Presence of other vascular implants and grafts; J44.89 Other specified chronic obstructive pulmonary disease; I48.20 Chronic atrial fibrillation, unspecified; E11.40 Type 2 diabetes mellitus with diabetic neuropathy, unspecified; E11.65 Type 2 diabetes mellitus with hyperglycemia; H54.8 Legal blindness, as defined in USA; K21.9 Gastro-esophageal reflux disease without esophagitis; I20.9 Angina pectoris, unspecified; Z87.891 Personal history of nicotine dependence; Z86.718 Personal history of other venous thrombosis and embolism; Z95.0 Presence of cardiac pacemaker; Z99.81 Dependence on supplemental oxygen
CPT/HCPCS: 36415; 71045; 74176; 78452; 80048; 80053; 80061; 80202; 81001; 82565; 82607; 82746; 82962; 83036; 83540; 83550; 83605; 83690; 83735; 83880; 84443; 84484; 85025; 85610; 85730; 87040; 87086; 87088; 87186; 87426; 93005; 93017; 93306; 93458; 94640; 96365; 97116; 97163; 97530; 99152; 99291; G0378; J1815; J2250; J2470; J2543; P9047